=== PATIENT | female | born 1950 | race Caucasian/White ===

== ENCOUNTER 2023-12-08 11:32 | Inpatient (IN) | payer MEDICARE, OTHER ==
--- NOTE | 2023-12-08 12:13 | ED ---
Abdominal Pain HPI - General Chief Complaint: Abdominal Pain Stated Complaint: Abdominal Pain Time Seen by Provider: 12/08/23 12:02 Source: patient, family, RN notes reviewed Mode of arrival: ambulatory Limitations: no limitations - History of Present Illness Initial Comments: This is a 73-year-old female who presents to the emergency department for abdo reinaldo pain. Reports lower abdominal cramping for the last 4 days. Pain is not worse on any particular side. She does have radiation into the back as well. Reports some constipation. She has had similar pains on and off over the last year, however they have not lasted this long or been as severe as they have been over the last 4 days. She has not had any workup or imaging done regarding the pain. She followed up with her primary care provider and was advised to take laxatives as she has had some constipation. Additionally, over the last week she has had green vaginal discharge with a foul odor. Denies any vaginal itching or burning. MD Complaint: abdominal pain - Related Data Home Medications Medication Instructions Recorded Confirmed Amiodarone [Cordarone] 200 mg PO DAILY@0912/08/23 12/08/23 Apixaban [Eliquis] 5 mg PO BID@09,209912/08/23 12/08/23 Aspirin EC [Ecotrin Low Dose] 81 mg PO DAILY@89912/08/23 12/08/23 Atorvastatin [Lipitor] 80 mg PO HS@209912/08/23 12/08/23 Docusate 50mg 50 mg PO BID@0900,209912/08/23 12/08/23 Ezetimibe [Zetia] 10 mg PO DAILY@0900 12/08/23 12/08/23 Gabapentin [Neurontin] 300 mg PO BID PRN 12/08/23 12/08/23 Lacosamide 100 mg PO BID@1000,2200 12/08/23 12/08/23 Magnesium Oxide [Mag-Ox] 400 mg PO BID@0900,209912/08/23 12/08/23 Metoprolol Succinate (ER) [Toprol 50 mg PO BID@0900,209912/08/23 12/08/23 Xl] Mirabegron [Myrbetriq] 25 mg PO DAILY@0900 12/08/23 12/08/23 Omeprazole 20 mg PO BID@0900,1600 12/08/23 12/08/23 Phenytoin Sodium Extended 300 mg PO HS@2100 12/08/23 12/08/23 [Dilantin] Sennosides [Senokot] 8.6 mg PO DAILY@0900 12/08/23 12/08/23 Vilazodone HCl 20 mg PO DAILY@0900 12/08/23 12/08/23 Allergies Allergy/AdvReac Type Severity Reaction Status Date / Time No Known Allergies Allergy Verified 12/08/23 17:48 Review of Systems ROS Statement: Those systems with pertinent positive or pertinent negative responses have been documented in the HPI. ROS Other: All systems not noted in ROS Statement are negative. Past Medical History Past Medical History: CVA/TIA, Hyperlipidemia, Hypertension, Myocardial Infarction ([place]) History of Any Multi-Drug Resistant Organisms: None Reported Past Surgical History: Section, Coronary Bypass/CABG Smoking Status: Former smoker General Exam Limitations: no limitations General appearance: alert, in no apparent distress Head exam: Present: atraumatic, normocephalic, normal inspection Respiratory exam: Present: normal lung sounds bilaterally. Absent: respiratory distress, wheezes, rales, rhonchi, stridor Cardiovascular Exam: Present: regular rate, normal rhythm, normal heart sounds. Absent: systolic murmur, diastolic murmur, rubs, gallop, clicks GI/Abdominal exam: Present: soft, tenderness (Lower abdomen), normal bowel sounds. Absent: distended Neurological exam: Present: alert, oriented X3, CN II-XII intact Psychiatric exam: Present: normal affect, normal mood Skin exam: Present: warm, dry, intact, normal color. Absent: rash Course Vital Signs 12/08/23 12/08/23 12/08/23 11:56 12:00 16:00 Temperature 98 F Pulse Rate 120 H 76 86 Respiratory 20 16 16 Rate Blood Pressure 116/89 143/103 O2 Sat by Pulse 98 99 96 Oximetry 12/08/23 12/08/23 12/08/23 17:00 18:00 19:00 Temperature Pulse Rate 71 76 81 Respiratory 16 18 16 Rate Blood Pressure 141/72 152/78 142/103 O2 Sat by Pulse 96 96 95 Oximetry 12/08/23 12/09/23 12/09/23 20:26 00:20 03:32 Temperature Pulse Rate 114 H 115 H 111 H Respiratory 20 16 16 Rate Blood Pressure 142/103 126/78 119/84 O2 Sat by Pulse 96 95 95 Oximetry 12/09/23 12/09/23 04:55 05:54 Temperature Pulse Rate 101 H 99 Respiratory 16 16 Rate Blood Pressure 98/58 114/74 O2 Sat by Pulse 96 95 Oximetry Medical Decision Making - Medical Decision Making This is a 73 year old female who presents to the emergency department for abdominal pain. Was pt. sent in by a medical professional or institution? @ -No Did you speak to anyone other than the patient for history? @ -No Did you review nursing and triage notes? @ -Yes, and I agree, it is accurate with regards to the patient's symptoms. Were old charts reviewed? @ -No Differential Diagnosis? @ -Differential Abdominal Pain Women: Appendicitis, Cholecystitis, diverticulosis, ischemic bowel, pancreatitis, hepatitis, UTI, gastroenteritis, AAA, incarcerated hernia, bowel obstruction, constipation, inflammatory bowel, hepatitis, peptic ulcer disease, splenic infarction, perforated viscus, vulvitis, ovarian torsion, PID, kidney stone, placenta abruption, this is not meant to be an all-inclusive list EKG interpreted by me (3pts min.)? @ -Ordered - pending at admission. X-rays interpreted by me (1pt min.)? @ -Not obtained CT interpreted by me (1pt min.)? @ -CT scan of the abdomen and pelvis obtained. My interpretation identifies a large mass in the pelvis. U/S interpreted by me (1pt. min.)? @ -Transvaginal ultrasound obtained. My interpretation identifies what appears to be a mass near the uterus. What testing was considered but not performed? (CT, X-rays, U/S, labs)? Why? @ -None What meds were considered but not given? Why? @ -None Did you discuss the management of the patient with other professionals? @ -Yes, Karissa Lai with [facility] who accepts the patient for admission Did you reconcile home meds? @ -Yes Was smoking cessation discussed for >3mins.? @ -No Was critical care preformed (if so, how long)? @ -No Were there social determinants of health that impacted care today? How? (Homelessness, low income, unemployed, alcoholism, drug addiction, transportation, low edu. Level, literacy, decrease access to med. care, [facility], rehab)? @ -No Was there de-escalation of care discussed even if they declined? (Discuss DNR or withdrawal of care, Hospice)? @ -No What co-morbidities impacted this encounter? (DM, HTN, Smoking, COPD, CAD, Cancer, CVA, Hep., AIDS, mental health diagnosis, sleep apnea, morbid obesity)? @ -HLD, HTN Was patient admitted / discharged? @ -Admitted. Lab work demonstrates leukocytosis with a white blood cell count of 23.2. Liver enzymes also mildly elevated, however there was some hemolysis. CT scan of the abdomen and pelvis demonstrates a large complex cystic area within the mid pelvis that could be multiple suspicious cysts within an ovarian neoplasm. There is also diverticulosis and sigmoid wall thickening. They advised consideration for mild diverticulitis. Given these findings, pelvic ultrasound was obtained. This demonstrates a large heterogeneous mass in the expected location of the uterus highly concerning for malignancy unless proven otherwise. Patient did continue to be in a large amount of pain. Patient admitted to medicine for the intractable pain related to pelvic mass as well as diverticulitis. Consult placed for [employer] and hematology/oncology regarding the pelvic mass. Advised the patient that it is not clear how much workup can necessarily be done on an inpatient basis and she will need outpatient follow up, however we will try to manage her pain, which is her most bothersome issue. Blood cultures were obtained and she was started on ceftriaxone and Flagyl regarding potential diverticulitis. Undiagnosed new problem with uncertain prognosis? @ -None Drug Therapy requiring intensive monitoring for toxicity (Heparin, Nitro, Insulin, Cardizem)? @ -None Were any procedures done? @ -None Diagnosis/symptom? @ -Pelvic mass, intractable abdominal pain, diverticulitis Acute, or Chronic, or Acute on Chronic? @ -Acute Uncomplicated (without systemic symptoms) or Complicated (systemic symptoms)? @ -Complicated Side effects of treatment? @ -None Exacerbation, Progression, or Severe Exacerbation] @ -Not applicable Poses a threat to life or bodily function? @ -Yes This case was discussed in detail with the attending ED physician, Dr. Adan. Presentation, findings, and treatment plan discussed in detail as well. - Lab Data Result diagrams: 12/08/23 13:03 12/08/23 13:03 Lab Results 12/08/23 12/08/23 12/08/23 Range/Units 13:03 13:03 13:03 WBC 23.2 H (3.8-10.6) k/uL RBC 4.80 (3.80-5.40) m/uL Hgb 14.1 (11.4-16.0) gm/dL Hct 44.0 (34.0-46.0) % MCV 91.6 (80.0-100.0) fL MCH 29.4 (25.0-35.0) pg MCHC 32.1 (31.0-37.0) g/dL RDW 13.3 (11.5-15.5) % Plt Count 605 H (150-450) k/uL MPV 8.3 Neutrophils % 81 % Lymphocytes % 12 % Monocytes % 5 % Eosinophils % 0 % Basophils % 1 % Neutrophils # 18.9 H (1.3-7.7) k/uL Lymphocytes # 2.7 (1.0-4.8) k/uL Monocytes # 1.1 H (0-1.0) k/uL Eosinophils # 0.1 (0-0.7) k/uL Basophils # 0.1 (0-0.2) k/uL Sodium 138 (137-145) mmol/L Potassium 3.5 (3.5-5.1) mmol/L Chloride 104 (98-107) mmol/L Carbon Dioxide 20 L (22-30) mmol/L Anion Gap 14 mmol/L BUN 8 (7-17) mg/dL Creatinine 0.41 L (0.52-1.04) mg/dL Est GFR (CKD-EPI)AfAm >90 (>60 ml/min/1.73 sqM) Est GFR (CKD-EPI)NonAf >90 (>60 ml/min/1.73 sqM) Glucose 123 H (74-99) mg/dL Plasma Lactic Acid Octavio 1.6 (0.7-2.0) mmol/L Calcium 9.5 (8.4-10.2) mg/dL Total Bilirubin 0.9 (0.2-1.3) mg/dL AST 67 H (14-36) U/L ALT 48 H (4-34) U/L Alkaline Phosphatase 308 H (38-126) U/L Total Protein 8.8 H (6.3-8.2) g/dL Albumin 4.2 (3.5-5.0) g/dL Amylase 52 (30-110) U/L Lipase 38 (23-300) U/L Carcinoembryonic Ag (0.0-4.9) ng/mL CA 125 Antigen (0.0-30.1) U/mL Urine Color Urine Appearance (Clear) Urine pH (5.0-8.0) Ur Specific [place] (1.001-1.035) Urine Protein (Negative) Urine Glucose (UA) (Negative) Urine Ketones (Negative) Urine Blood (Negative) Urine Nitrite (Negative) Urine Bilirubin (Negative) Urine Urobilinogen (<2.0) mg/dL Ur Leukocyte Esterase (Negative) Urine RBC (0-5) /hpf Urine WBC (0-5) /hpf Ur Squamous Epith Cells (0-4) /hpf Urine Bacteria (None) /hpf 12/08/23 12/08/23 12/08/23 Range/Units 13:03 13:03 14:55 WBC (3.8-10.6) k/uL RBC (3.80-5.40) m/uL Hgb (11.4-16.0) gm/dL Hct (34.0-46.0) % MCV (80.0-100.0) fL MCH (25.0-35.0) pg MCHC (31.0-37.0) g/dL RDW (11.5-15.5) % Plt Count (150-450) k/uL MPV Neutrophils % % Lymphocytes % % Monocytes % % Eosinophils % % Basophils % % Neutrophils # (1.3-7.7) k/uL Lymphocytes # (1.0-4.8) k/uL Monocytes # (0-1.0) k/uL Eosinophils # (0-0.7) k/uL Basophils # (0-0.2) k/uL Sodium (137-145) mmol/L Potassium (3.5-5.1) mmol/L Chloride (98-107) mmol/L Carbon Dioxide (22-30) mmol/L Anion Gap mmol/L BUN (7-17) mg/dL Creatinine (0.52-1.04) mg/dL Est GFR (CKD-EPI)AfAm (>60 ml/min/1.73 sqM) Est GFR (CKD-EPI)NonAf (>60 ml/min/1.73 sqM) Glucose (74-99) mg/dL Plasma Lactic Acid Octavio (0.7-2.0) mmol/L Calcium (8.4-10.2) mg/dL Total Bilirubin (0.2-1.3) mg/dL AST (14-36) U/L ALT (4-34) U/L Alkaline Phosphatase (38-126) U/L Total Protein (6.3-8.2) g/dL Albumin (3.5-5.0) g/dL Amylase (30-110) U/L Lipase (23-300) U/L Carcinoembryonic Ag 4.4 (0.0-4.9) ng/mL CA 125 Antigen 37.4 H (0.0-30.1) U/mL Urine Color Yellow Urine Appearance Cloudy H (Clear) Urine pH 7.5 (5.0-8.0) Ur Specific [place] >1.050 H (1.001-1.035) Urine Protein 1+ H (Negative) Urine Glucose (UA) Negative (Negative) Urine Ketones Trace H (Negative) Urine Blood Trace H (Negative) Urine Nitrite Negative (Negative) Urine Bilirubin Negative (Negative) Urine Urobilinogen <2.0 (<2.0) mg/dL Ur Leukocyte Esterase Moderate H (Negative) Urine RBC 12 H (0-5) /hpf Urine WBC 34 H (0-5) /hpf Ur Squamous Epith Cells 36 H (0-4) /hpf Urine Bacteria Rare H (None) /hpf - Radiology Data Radiology results: report reviewed, image reviewed Disposition Clinical Impression: Diverticulitis, Intractable abdominal pain, Pelvic mass Disposition: ADMITTED IP TO THIS [facility] Time of Disposition: 17:34
[2023-12-08 13:34] LABS: Basophils # (A) 0.1 k/uL (0-0.2); Basophils % (A) 1 %; Eosinophils # (A) 0.1 k/uL (0-0.7); Eosinophils % (A) 0 %; HGB 14.1 gm/dL (11.4-16.0); Lymphocytes # (A) 2.7 k/uL (1.0-4.8); Lymphocytes % (A) 12 %; MCH 29.4 pg (25.0-35.0); MCHC 32.1 g/dL (31.0-37.0); MCV 91.6 fL (80.0-100.0); Mean Platelet Volume 8.3; Monocytes # (A) 1.1 k/uL (0-1.0); Monocytes % (A) 5 %; Neutrophils # (A) 18.9 k/uL (1.3-7.7); Neutrophils % (A) 81 %; Platelet Count 605 k/uL (150-450); RDW 13.3 % (11.5-15.5); WBC 23.2 k/uL (3.8-10.6)
[2023-12-08 13:49] LABS: African American GFR (CKD) >90 (>60 ml/min/1.73 sqM); Albumin 4.2 g/dL (3.5-5.0); Amylase 52 U/L (30-110); Anion Gap 14 mmol/L; Blood Urea Nitrogen 8 mg/dL (7-17); Calcium 9.5 mg/dL (8.4-10.2); Carbon Dioxide 20 mmol/L (22-30); Chloride 104 mmol/L (98-107); Glucose 123 mg/dL (74-99); Lipase 38 U/L (23-300); Non-African American GFR(CKD) >90 (>60 ml/min/1.73 sqM); Sodium 138 mmol/L (137-145); Total Bilirubin 0.9 mg/dL (0.2-1.3); Total Protein 8.8 g/dL (6.3-8.2)
[2023-12-08 13:54] LABS: Alkaline Phosphatase 308 U/L (38-126); Potassium 3.5 mmol/L (3.5-5.1)
[2023-12-08 13:55] LABS: ALT 48 U/L (4-34); AST 67 U/L (14-36)
[2023-12-08] MEDS: KETOROLAC 15 MG/ML 1 ML VIAL IVP STA (13:59)
[2023-12-08] MEDS: MORPHINE SULFATE 2 MG/ML SYRINGE IVP STA (14:00)
[2023-12-08] MEDS: SODIUM CHLORIDE 0.9% 1,000 ML IV STA (14:01)
--- NOTE | 2023-12-08 15:14 | CT ---
EXAMINATION TYPE: CT abdomen pelvis w con DATE OF EXAM: 12/08/2023 COMPARISON: None INDICATION: Lower abdominal pain DLP: 612.8 mGycm, Automated exposure control for dose reduction was used. CONTRAST: 100 mL of Isovue 300. Study performed without Oral Contrast TECHNIQUE: Axial images were obtained from above the diaphragm to the pubic rami in the axial plane a t 5 mm thick sections. Reconstructed images are reviewed on the computer in the coronal plane. FINDINGS: Limited CT sections are obtained the lung bases. Lung bases are clear.. CT ABDOMEN: Some wall thickening to the stomach may be present. Follow-up is recommended. Liver: Mild fatty infiltration of liver. No discrete masses are evident. Spleen: Normal Pancreas: Normal Adrenal glands: The adrenal glands are normal. Gallbladder: Normal Kidneys: No masses are evident. No hydronephrosis is present. No cysts are present. Delayed images were obtained through the kidneys, which remain unremarkable. Aorta: Vascular calcification is within the aorta. Inferior vena cava: Normal. CT PELVIS: Diverticular changes are within the sigmoid colon. There may be some sigmoid wall thickening. Mild di verticulosis should be considered. This study is without oral contrast limiting bowel evaluation. Appendix: Normal as visualized. Urinary bladder: Normal. Genitourinary structures: There is a large complex cystic mass in the mid pelvis in the expected cindy on of the uterus. This may be a large cystic ovary with multiple septations. Hypodense masses within the uterus are considered less likely. This area measures at least 12.3 x 8.3 x 7.5 cm in size. Corre late with the patient's surgical history. Additional workup for ovarian cancer is recommended. No ome ntal caking is evident. No significant fluid is present. Osseous structures: No suspicious lytic or sclerotic lesions evident. Advanced degenerative changes a re at the left hip joint space IMPRESSION: 1. Large complex cystic area within the mid pelvis could be multiple suspicious cysts within an ovar karma neoplasm. Additional workup is recommended. 2. Diverticulosis. Some mild diverticulitis without adjacent inflammatory changes could be considered . 3. Wall thickening through the stomach is not excluded. Follow-up is recommended. 4. Mild fatty infiltration of the liver.
[2023-12-08 15:15] LABS: Appearance,Urine Cloudy (Clear); Bacteria,Urine Rare /hpf; Bilirubin,Urine Negative (Negative); Blood,Urine Trace (Negative); Color,Urine Yellow; Glucose,Urine (UA) Negative (Negative); Ketones,Urine Trace (Negative); Leukocyte Esterase,Urine Moderate (Negative); Nitrite,Urine Negative (Negative); PH, Urine 7.5 (5.0-8.0); Protein,Urine 1+ (Negative); RBC,Urine 12 /hpf (0-5); Squamous Epithelial Cell,Urine 36 /hpf (0-4); Urobilinogen,Urine <2.0 mg/dL (<2.0); WBC,Urine 34 /hpf (0-5)
[2023-12-08 15:18] LABS: Specific Gravity,Urine >1.050 (1.001-1.035)
[2023-12-08] MEDS: MORPHINE SULFATE 4 MG/ML SYRINGE IVP STA (15:50)
--- NOTE | 2023-12-08 17:13 | US ---
EXAMINATION TYPE: US pelvic complete DATE OF EXAM: 12/08/2023 COMPARISON: Same day CT CLINICAL INDICATION: Female, 73 years old with history of Pelvic pain, mass on CT; pelvic pain x 1 we ek, difficulty urination x 1 day TECHNIQUE: Transvaginal (TV) and Transabdominal (TA) . Transabdominal sonographic images of the pel vis were acquired. Transvaginal sonographic images were medically necessary to better assess the fol lowing anatomy: Ovaries Date of LMP: 1996 EXAM MEASUREMENTS: A normal uterus is not demonstrated. In its expected location there is a large heterogeneous masslike conglomerate with solid and cystic components which measures in total 9.5 x 4.9 x 9 cm. One of the l arger heterogeneous areas measures 4.1 x 3.8 x 3.3 cm, at the left fundal region. Normal endometrial stripe is not visualized. Normal ovaries are not identified. Bilateral adnexa are obscured by overlying bowel gas. Posterior cu l-de-sac appears within normal limits. IMPRESSION: 1. Neither a normal uterus or bilateral ovaries are identified. 2. Large heterogeneous mass in the expected location of the uterus, highly concerning for malignancy unless proven otherwise. Origin could be uterine or ovarian.
[2023-12-08] MEDS ORDERED: NALOXONE 0.4 MG/ML 1 ML VIAL IV PRN (17:34)
[2023-12-08] MEDS ORDERED: ACETAMINOPHEN TAB 325 MG TAB PO PRN (17:34)
[2023-12-08] MEDS: cefTRIAXone IN SWFI 1,000 MG/10 ML SYRINGE IVP ONE (19:20)
[2023-12-08] MEDS: ONDANSETRON 4 MG/2 ML VIAL IVP PRN (19:20)
[2023-12-08] MEDS: HYDROmorphone 1 MG/ML 1 ML SYRINGE IVP STA (19:21)
[2023-12-08] MEDS: metroNIDAZOLE-NS PMX 500 MG in SALINE 1 100ML.BAG IVPB SCH (20:23)
[2023-12-08] MEDS: PHENYTOIN SODIUM EXTENDED 100 MG CAP PO SCH (20:47)
[2023-12-08] MEDS: APIXABAN 5 MG TAB PO SCH (20:48)
[2023-12-08] MEDS: LACOSAMIDE 50 MG TABLET PO SCH (20:49)
[2023-12-08] MEDS: MAGNESIUM OXIDE 400 MG TAB PO SCH (20:52)
[2023-12-08] MEDS: METOPROLOL SUCCINATE (ER) 50 MG TAB.ER.24H PO SCH (20:52)
[2023-12-08] MEDS: ATORVASTATIN 80 MG TAB PO SCH (20:52)
[2023-12-08] MEDS: DOCUSATE ORAL SOLN 100 MG/10 ML CUP PO SCH (20:53)
[2023-12-09] MEDS: HYDROcodone/APAP 5-325MG 1 EACH TAB PO PRN (02:44)
[2023-12-09] MEDS: KETOROLAC 15 MG/ML 1 ML VIAL IVP PRN (05:23)
[2023-12-09] MEDS: AMIODARONE 200 MG TAB PO SCH (08:46)
[2023-12-09] MEDS: ASPIRIN 81 MG PO SCH (08:46)
[2023-12-09] MEDS: PANTOPRAZOLE 40 MG TABLET PO SCH (08:46)
[2023-12-09] MEDS: SENNOSIDES 8.6 MG TAB PO SCH (08:46)
[2023-12-09] MEDS: EZETIMIBE 10 MG TAB PO SCH (08:47)
[2023-12-09] MEDS ORDERED: PANTOPRAZOLE 40 MG/10 ML VIAL IV SCH (09:00)
[2023-12-09] MEDS: VILAZODONE HCL 20 MG PO SCH (09:50)
[2023-12-09] MEDS: Mirabegron [Myrbetriq] 25 MG Tab.Er.24h PO SCH (09:50)
[2023-12-09] MEDS: SODIUM CHLORIDE 0.9% 1,000 ML IV SCH (09:56)
--- NOTE | 2023-12-09 11:23 | P.OBCN ---
History of Present Illness Consult date: 12/09/23 Reason for consult: pelvic mass Chief complaint: Abdominal pain History of present illness: Ms. Lloyd is a 73 year old who presented to the ER with lower abdominal pain and was found to have a large pelvic mass on imaging. The patient states that the pain has been intermittent over the past year diffusely throughout the pelvis, but it has increased in severity over the past 4 days which lead her to be evaluted in the ER. The pain is concentrated in the lower pelvis but radiates to the lower back and flank areas. The patient states she has barely any appetite. She has gained a small amount of weight over the past 6 months, but nothing she considers abnormal. She has also felt bloated and "swollen" in the lower abdomen. CT Abdomen/Pelvis showed a large complex cystic mass in the mid pelvis in the expected region of the uterus. The mas may be a large cystic ovary with multiple septations. Hypodense masses within the uterus are considered less likely. The area measures at least 12.3 x 8.3 x 7.5 cm. No omental caking is evident. No significant fluid is present. There is also diverticulosis noted and diverticulitis can be considered. Pelvic US shows a mass-like conglomerate with solid and cystic components which measures in total 9.5 x 4.9 x 9 cm in the expected location of the uterus. Normal ovaries are not identified and bilateral adnexa are obscurred by overlying bowel gas. Origin of mass could be uterine or ovarian, highly suspicious for malignancy. Labwork in the ER shows a leukocytosis of 23. CA-125 is mildly elevated at 37. CEA was also drawn, which was normal. ObGyn History: 2 full-term vaginal deliveries, 1 . Menopause was around 1995. The patient denies use of hormone replacement therapy. Past medical history: CVA in 1995, hypertension Medications: see MAR Surgical history: x1, heart surgery Social History: The patient is a former smoker. She also uses marijuana. She denies alcohol or other recreational drug use. The patient lives [place] up [place] in [place] and was in [place] her daughter when the pain occurred. Past Medical History Past Medical History: CVA/TIA, Hyperlipidemia, Hypertension, Myocardial Infarction ([place]) History of Any Multi-Drug Resistant Organisms: None Reported Past Surgical History: Section, Coronary Bypass/CABG Smoking Status: Former smoker Medications and Allergies Home Medications Medication Instructions Recorded Confirmed Type Amiodarone [Cordarone] 200 mg PO DAILY@0900 12/08/23 12/08/23 History Apixaban [Eliquis] 5 mg PO BID@0900,209912/08/23 12/08/23 History Aspirin EC [Ecotrin Low Dose] 81 mg PO DAILY@0900 12/08/23 12/08/23 History Atorvastatin [Lipitor] 80 mg PO HS@209912/08/23 12/08/23 History Docusate 50mg 50 mg PO BID@0900,209912/08/23 12/08/23 History Ezetimibe [Zetia] 10 mg PO DAILY@0900 12/08/23 12/08/23 History Gabapentin [Neurontin] 300 mg PO BID PRN 12/08/23 12/08/23 History Lacosamide 100 mg PO BID@1000,2200 12/08/23 12/08/23 History Magnesium Oxide [Mag-Ox] 400 mg PO BID@0900,209912/08/23 12/08/23 History Metoprolol Succinate (ER) [Toprol 50 mg PO BID@0900,209912/08/23 12/08/23 History Xl] Mirabegron [Myrbetriq] 25 mg PO DAILY@0900 12/08/23 12/08/23 History Omeprazole 20 mg PO BID@0900,1600 12/08/23 12/08/23 History Phenytoin Sodium Extended 300 mg PO HS@209912/08/23 12/08/23 History [Dilantin] Sennosides [Senokot] 8.6 mg PO DAILY@0900 12/08/23 12/08/23 History Vilazodone HCl 20 mg PO DAILY@0900 12/08/23 12/08/23 History Allergies Allergy/AdvReac Type Severity Reaction Status Date / Time No Known Allergies Allergy Verified 12/08/23 17:48 Exam Vital Signs Temp Pulse Pulse Resp BP BP Pulse Ox 12/09/23 08:40 86 16 121/70 12/09/23 07:01 99 16 114/74 94 L 12/09/23 05:54 99 16 114/74 95 12/09/23 04:55 101 H 16 98/58 96 12/09/23 03:32 111 H 16 119/84 95 12/09/23 00:20 115 H 16 126/78 95 12/08/23 20:26 114 H 20 142/103 96 12/08/23 19:00 81 16 142/103 95 12/08/23 18:00 76 18 152/78 96 12/08/23 17:00 71 16 141/72 96 12/08/23 16:00 86 16 143/103 96 12/08/23 12:00 76 16 99 12/08/23 11:56 98 F 120 H 20 116/89 98 Intake and Output 12/08/23 12/09/23 12/09/23 22:59 06:59 14:59 Other: # Voids 1 Focused physical exam is performed. The patient appears to be comfortable at this time. She is conversing normally. Breathing is non-labored. Abdomen is distended and tender to palpation across the lower pelvis. On sterile speculum exam the external genitalia are normal-appearing, the cervix is unremarkable. There are no vaginal discharge, vaginal bleeding, or vaginal lesions noted. On bimanual exam there is a pelvic mass noted that measures approximately 16 weeks in size, it is unclear whether this is uterine or ovarian in origin. The uterus and adnexa are tender to palpation. Extremities are non-tender and non- edematous. Results Result Diagrams: 12/08/23 13:03 12/08/23 13:03 Abnormal Lab Results - Last 24 Hours (Table) 12/08/23 12/08/23 12/08/23 Range/Units 13:03 13:03 13:03 WBC 23.2 H (3.8-10.6) k/uL Plt Count 605 H (150-450) k/uL Neutrophils # 18.9 H (1.3-7.7) k/uL Monocytes # 1.1 H (0-1.0) k/uL Carbon Dioxide 20 L (22-30) mmol/L Creatinine 0.41 L (0.52-1.04) mg/dL Glucose 123 H (74-99) mg/dL AST 67 H (14-36) U/L ALT 48 H (4-34) U/L Alkaline Phosphatase 308 H (38-126) U/L Total Protein 8.8 H (6.3-8.2) g/dL CA 125 Antigen 37.4 H (0.0-30.1) U/mL Urine Appearance (Clear) Ur Specific [place] (1.001-1.035) Urine Protein (Negative) Urine Ketones (Negative) Urine Blood (Negative) Ur Leukocyte Esterase (Negative) Urine RBC (0-5) /hpf Urine WBC (0-5) /hpf Ur Squamous Epith Cells (0-4) /hpf Urine Bacteria (None) /hpf 12/08/23 Range/Units 14:55 WBC (3.8-10.6) k/uL Plt Count (150-450) k/uL Neutrophils # (1.3-7.7) k/uL Monocytes # (0-1.0) k/uL Carbon Dioxide (22-30) mmol/L Creatinine (0.52-1.04) mg/dL Glucose (74-99) mg/dL AST (14-36) U/L ALT (4-34) U/L Alkaline Phosphatase (38-126) U/L Total Protein (6.3-8.2) g/dL CA 125 Antigen (0.0-30.1) U/mL Urine Appearance Cloudy H (Clear) Ur Specific [place] >1.050 H (1.001-1.035) Urine Protein 1+ H (Negative) Urine Ketones Trace H (Negative) Urine Blood Trace H (Negative) Ur Leukocyte Esterase Moderate H (Negative) Urine RBC 12 H (0-5) /hpf Urine WBC 34 H (0-5) /hpf Ur Squamous Epith Cells 36 H (0-4) /hpf Urine Bacteria Rare H (None) /hpf Assessment and Plan Assessment: 73 year old with large pelvic mass of unclear origin Plan: Pelvic mass. CT and pelvic US unable to determine origin of mass, although ovarian is favored. CA-125 is slightly elevated at 37. Will order full OVA-1 panel. Recommend follow up with Gynecology Oncology outpatient for further earnest mace. Thank you for this consult. Please perfect serve with any questions. Time with Patient: Greater than 30 (45 minutes)
--- NOTE | 2023-12-09 13:16 | P.HPIM ---
History of Present Illness H&P Date: 12/09/23 Chief Complaint: Abdominal pain * 73-year-old patient with past medical history significant for history of TIA, hypertension hyperlipidemia history of coronary artery disease s/p CABG, history of atrial fibrillation presents to the emergency department with complaints of abdominal pain ongoing for the last approximately 4 days. Patient had complained of diffuse abdominal pain. Patient had also complained of impaired bowel movement with concern for constipation. Patient states she had similar pains ongoing off and on over the last year or so and had follow- up with primary care physician regarding this. Patient states she has been taking laxatives for constipation. Patient also complained of green vaginal discharge with foul odor. * Workup in ER included CBC showed WBC count of 23.2 hemoglobin of 14.1 platelet count of 605, serum chemistry showed sodium of 138 potassium 3.5 carbon dioxide 20 BUN 8 creatinine 0.41 lactate of 1.6 * AST of 67 ALT of 48 CEA 1 09/10/1937 * Urinalysis obtained showed moderate leukocyte esterase, large amount of WBC rare bacteria was noted * Patient had a CT abdomen and pelvis done which showed large complex cystic area within the mid pelvis with multiple suspicious cyst concern for neoplasm, patient had diverticulosis with element of diverticulitis around the sigmoid colon. Wall thickening of the stomach was noted as well. * To be admitted to medical floor for workup of pelvic mass with suspicion for malignancy REVIEW OF SYSTEMS: Abdominal pain, pelvic mass CONSTITUTIONAL: No fever, no malaise, no fatigue. HEENT: No recent visual problems or hearing problems. Denied any sore throat. CARDIOVASCULAR: No chest pain, orthopnea, PND, no palpitations, no syncope. PULMONARY: No shortness of breath, no cough, no hemoptysis. GASTROINTESTINAL: No diarrhea, no nausea, no vomiting, no abdominal pain. NEUROLOGICAL: No headaches, no weakness, no numbness. HEMATOLOGICAL: Denies any bleeding or petechiae. GENITOURINARY: Denies any burning micturition, frequency, or urgency. MUSCULOSKELETAL/RHEUMATOLOGICAL: Denies any joint pain, swelling, or any muscle pain. ENDOCRINE: Denies any polyuria or polydipsia. PHYSICAL EXAMINATION: GENERAL: The patient is alert and oriented x3, not in any acute distress. Well developed, well nourished. HEENT: Pupils are round and equally reacting to light. EOMI. Normocephalic, atraumatic. No pharyngeal erythema. No thyromegaly. CARDIOVASCULAR: S1 and S2 present. No murmurs, rubs, or gallops. PULMONARY: Chest is clear to auscultation, no wheezing or crackles. ABDOMEN: Soft, nontender, nondistended, normoactive bowel sounds. No palpable organomegaly. MUSCULOSKELETAL: No joint swelling or deformity. EXTREMITIES: No cyanosis, clubbing, or pedal edema. NEUROLOGICAL: Gross neurological examination did not reveal any focal deficits. SKIN: No rashes. Assessment and plan * Uterine mass suspect malignancy * Acute diverticulitis * Transaminitis * History of coronary artery disease and CABG * History of atrial fibrillation * Chronic anticoagulation * Regards to uterine mass patient had a CT abdomen and pelvis done, tumor marke rs obtained, DIRECTOR OF TECHNOLOGY consulted * Regards to acute diverticulitis continue patient on IV antibiotic Rocephin and Flagyl, CT abdomen pelvis reviewed * Regards to transaminitis follow-up on liver profile * Regards to history of coronary artery disease, continue aspirin, Lipitor, metoprolol * Regards to history of atrial fibrillation, Eliquis on hold, metoprolol resumed continue cafeteria monitor * CODE STATUS is full code Past Medical History Past Medical History: CVA/TIA, Hyperlipidemia, Hypertension, Myocardial Infarction ([place]) History of Any Multi-Drug Resistant Organisms: None Reported Past Surgical History: Section, Coronary Bypass/CABG Smoking Status: Former smoker Medications and Allergies Home Medications Medication Instructions Recorded Confirmed Type Amiodarone [Cordarone] 200 mg PO DAILY@89912/08/23 12/08/23 History Apixaban [Eliquis] 5 mg PO BID@899,209912/08/23 12/08/23 History Aspirin EC [Ecotrin Low Dose] 81 mg PO DAILY@89912/08/23 12/08/23 History Atorvastatin [Lipitor] 80 mg PO HS@209912/08/23 12/08/23 History Docusate 50mg 50 mg PO BID@899,209912/08/23 12/08/23 History Ezetimibe [Zetia] 10 mg PO DAILY@89912/08/23 12/08/23 History Gabapentin [Neurontin] 300 mg PO BID PRN 12/08/23 12/08/23 History Lacosamide 100 mg PO BID@1000,2200 12/08/23 12/08/23 History Magnesium Oxide [Mag-Ox] 400 mg PO BID@0900,209912/08/23 12/08/23 History Metoprolol Succinate (ER) [Toprol 50 mg PO BID@0900,209912/08/23 12/08/23 History Xl] Mirabegron [Myrbetriq] 25 mg PO DAILY@0900 12/08/23 12/08/23 History Omeprazole 20 mg PO BID@0900,1600 12/08/23 12/08/23 History Phenytoin Sodium Extended 300 mg PO HS@209912/08/23 12/08/23 History [Dilantin] Sennosides [Senokot] 8.6 mg PO DAILY@0900 12/08/23 12/08/23 History Vilazodone HCl 20 mg PO DAILY@89912/08/23 12/08/23 History Allergies Allergy/AdvReac Type Severity Reaction Status Date / Time No Known Allergies Allergy Verified 12/08/23 17:48 Physical Exam Vitals: Vital Signs Temp Pulse Resp BP Pulse Ox 12/09/23 07:01 99 16 114/74 94 L 12/09/23 05:54 99 16 114/74 95 12/09/23 04:55 101 H 16 98/58 96 12/09/23 03:32 111 H 16 119/84 95 12/09/23 00:20 115 H 16 126/78 95 12/08/23 20:26 114 H 20 142/103 96 12/08/23 19:00 81 16 142/103 95 12/08/23 18:00 76 18 152/78 96 12/08/23 17:00 71 16 141/72 96 12/08/23 16:00 86 16 143/103 96 12/08/23 12:00 76 16 99 12/08/23 11:56 98 F 120 H 20 116/89 98 Results CBC & Chem 7: 12/08/23 13:03 12/08/23 13:03 Labs: Abnormal Lab Results - Last 24 Hours (Table) 12/08/23 12/08/23 12/08/23 Range/Units 13:03 13:03 13:03 WBC 23.2 H (3.8-10.6) k/uL Plt Count 605 H (150-450) k/uL Neutrophils # 18.9 H (1.3-7.7) k/uL Monocytes # 1.1 H (0-1.0) k/uL Carbon Dioxide 20 L (22-30) mmol/L Creatinine 0.41 L (0.52-1.04) mg/dL Glucose 123 H (74-99) mg/dL AST 67 H (14-36) U/L ALT 48 H (4-34) U/L Alkaline Phosphatase 308 H (38-126) U/L Total Protein 8.8 H (6.3-8.2) g/dL CA 125 Antigen 37.4 H (0.0-30.1) U/mL Urine Appearance (Clear) Ur Specific [place] (1.001-1.035) Urine Protein (Negative) Urine Ketones (Negative) Urine Blood (Negative) Ur Leukocyte Esterase (Negative) Urine RBC (0-5) /hpf Urine WBC (0-5) /hpf Ur Squamous Epith Cells (0-4) /hpf Urine Bacteria (None) /hpf 12/08/23 Range/Units 14:55 WBC (3.8-10.6) k/uL Plt Count (150-450) k/uL Neutrophils # (1.3-7.7) k/uL Monocytes # (0-1.0) k/uL Carbon Dioxide (22-30) mmol/L Creatinine (0.52-1.04) mg/dL Glucose (74-99) mg/dL AST (14-36) U/L ALT (4-34) U/L Alkaline Phosphatase (38-126) U/L Total Protein (6.3-8.2) g/dL CA 125 Antigen (0.0-30.1) U/mL Urine Appearance Cloudy H (Clear) Ur Specific [place] >1.050 H (1.001-1.035) Urine Protein 1+ H (Negative) Urine Ketones Trace H (Negative) Urine Blood Trace H (Negative) Ur Leukocyte Esterase Moderate H (Negative) Urine RBC 12 H (0-5) /hpf Urine WBC 34 H (0-5) /hpf Ur Squamous Epith Cells 36 H (0-4) /hpf Urine Bacteria Rare H (None) /hpf
--- NOTE | 2023-12-09 13:45 | P.CONS ---
History of Present Illness - Reason for Consult Consult date: 12/09/23 Pelvic mass Requesting physician: Martin Pizarro - Chief Complaint Abdominal pain - History of Present Illness Ms. Lloyd is a very pleasant 73-year-old female who is here for abdominal pain for the past several days. She has had intermittent abdominal pain for few weeks now. She initially had lower abdominal pain possibly few months ago that resolved. She was a little constipated at the time and was prescribed Dulcolax by her PCP which helped the constipation and bloating that she was having but not the intermittent pain. She had increasing abdominal pain for the past 4 days which prompted her ER visit. Also complaining of vaginal discharge, green with foul odor. Workup in the ER revealed leukocytosis with a WBC of 23, platelet 605, normal hemoglobin at 14, normal creatinine at 0.4. She did have mild transaminitis at 67 and 48 for AST and ALT respectively. Alk phos 308 with a total bilirubin of 0.9. She underwent CT of the abdomen pelvis which revealed a large 12 x 8.3 x 7.5 cm complex cystic area in the mid pelvis, possibly uterine mass. Also with some diverticulosis and possible stomach wall thickening. She underwent pelvic ultrasound which confirmed a 9.5 x 4.9 x 9 cm masslike conglomerate where the uterus should be without visualization of the ovaries due to gas obstructing the adnexa or obvious uterus. One of the heterogenous areas within this mass measures 4.1 x 3.8 x 3.3 cm. She is being admitted for further evaluation of possible [employer] malignancy. Overall she has been doing well. She does have some comorbidities including open heart surgery for aortic aneurysm, valve repair, and CABG x 2 in 2021 (aortic aneurysm was found incidentally on a lung cancer screening CT per patient and her daughter) as well as CVA in 1995. She does have some residual deficits from her prior stroke, mainly difficulty with memory. Otherwise she has been independent and overall healthy. She has a remote history of smoking however does not currently smoke. Past Medical History Past Medical History: CVA/TIA, Hyperlipidemia, Hypertension, Myocardial Infarction ([place]) History of Any Multi-Drug Resistant Organisms: None Reported Past Surgical History: Section, Coronary Bypass/CABG Smoking Status: Former smoker Medications and Allergies Home Medications Medication Instructions Recorded Confirmed Type Amiodarone [Cordarone] 200 mg PO DAILY@0900 12/08/2312/07/24 History Apixaban [Eliquis] 5 mg PO BID@0900,209912/08/23 12/08/23 History Aspirin EC [Ecotrin Low Dose] 81 mg PO DAILY@89912/08/23 12/08/23 History Atorvastatin [Lipitor] 80 mg PO HS@209912/08/23 12/08/23 History Docusate 50mg 50 mg PO BID@0900,209912/08/23 12/08/23 History Ezetimibe [Zetia] 10 mg PO DAILY@89912/08/23 12/08/23 History Gabapentin [Neurontin] 300 mg PO BID PRN 12/08/23 12/08/23 History Lacosamide 100 mg PO BID@1000,219912/08/23 12/08/23 History Magnesium Oxide [Mag-Ox] 400 mg PO BID@0900,209912/08/23 12/08/23 History Metoprolol Succinate (ER) [Toprol 50 mg PO BID@0900,209912/08/23 12/08/23 History Xl] Mirabegron [Myrbetriq] 25 mg PO DAILY@0912/08/23 12/08/23 History Omeprazole 20 mg PO BID@0900,1600 12/08/23 12/08/23 History Phenytoin Sodium Extended 300 mg PO HS@209912/08/23 12/08/23 History [Dilantin] Sennosides [Senokot] 8.6 mg PO DAILY@89912/08/23 12/08/23 History Vilazodone HCl 20 mg PO DAILY@89912/08/23 12/08/23 History Allergies Allergy/AdvReac Type Severity Reaction Status Date / Time No Known Allergies Allergy Verified 12/08/23 17:48 Physical Exam Vitals: Vital Signs Temp Pulse Resp BP Pulse Ox 12/09/23 07:01 99 16 114/74 94 L 12/09/23 05:54 99 16 114/74 95 12/09/23 04:55 101 H 16 98/58 96 12/09/23 03:32 111 H 16 119/84 95 12/09/23 00:20 115 H 16 126/78 95 12/08/23 20:26 114 H 20 142/103 96 12/08/23 19:00 81 16 142/103 95 12/08/23 18:00 76 18 152/78 96 12/08/23 17:00 71 16 141/72 96 12/08/23 16:00 86 16 143/103 96 12/08/23 12:00 76 16 99 12/08/23 11:56 98 F 120 H 20 116/89 98 Patient appears to be in no acute distress. She is alert and oriented x 3. Appropriate affect. She does have some tenderness in the lower abdominal region, suprapubic region. Otherwise abdomen is soft and nondistended. No respiratory distress. Results CBC & Chem 7: 12/08/23 13:03 12/08/23 13:03 Labs: Abnormal Lab Results - Last 24 Hours (Table) 12/08/23 12/08/23 12/08/23 Range/Units 13:03 13:03 13:03 WBC 23.2 H (3.8-10.6) k/uL Plt Count 605 H (150-450) k/uL Neutrophils # 18.9 H (1.3-7.7) k/uL Monocytes # 1.1 H (0-1.0) k/uL Carbon Dioxide 20 L (22-30) mmol/L Creatinine 0.41 L (0.52-1.04) mg/dL Glucose 123 H (74-99) mg/dL AST 67 H (14-36) U/L ALT 48 H (4-34) U/L Alkaline Phosphatase 308 H (38-126) U/L Total Protein 8.8 H (6.3-8.2) g/dL CA 125 Antigen 37.4 H (0.0-30.1) U/mL Urine Appearance (Clear) Ur Specific [place] (1.001-1.035) Urine Protein (Negative) Urine Ketones (Negative) Urine Blood (Negative) Ur Leukocyte Esterase (Negative) Urine RBC (0-5) /hpf Urine WBC (0-5) /hpf Ur Squamous Epith Cells (0-4) /hpf Urine Bacteria (None) /hpf 12/08/23 Range/Units 14:55 WBC (3.8-10.6) k/uL Plt Count (150-450) k/uL Neutrophils # (1.3-7.7) k/uL Monocytes # (0-1.0) k/uL Carbon Dioxide (22-30) mmol/L Creatinine (0.52-1.04) mg/dL Glucose (74-99) mg/dL AST (14-36) U/L ALT (4-34) U/L Alkaline Phosphatase (38-126) U/L Total Protein (6.3-8.2) g/dL CA 125 Antigen (0.0-30.1) U/mL Urine Appearance Cloudy H (Clear) Ur Specific [place] >1.050 H (1.001-1.035) Urine Protein 1+ H (Negative) Urine Ketones Trace H (Negative) Urine Blood Trace H (Negative) Ur Leukocyte Esterase Moderate H (Negative) Urine RBC 12 H (0-5) /hpf Urine WBC 34 H (0-5) /hpf Ur Squamous Epith Cells 36 H (0-4) /hpf Urine Bacteria Rare H (None) /hpf Comments: Transvaginal pelvic ultrasound reviewed CT scan - abdomen: report reviewed, image reviewed CT scan - pelvis: report reviewed, image reviewed Assessment and Plan Assessment: 1. Abdominal pain with new possible uterine mass 2. Leukocytosis and thrombocytosis 3. Mild transaminits Plan: Ms. Lloyd is a very pleasant 73-year-old female who is here for abdominal pain, workup revealed a large 9.5 cm masslike conglomerate in the region of the uterus concerning for malignancy. CA125 37, CEA 4.4. Also with mild leukocytosis and thrombocytosis at 23 and 605 respectively with a normal hemoglobin of 14. -I reviewed her CT images. Discussed her image findings with her -Overall clinical picture highly suspicious for gynecologic malignancy -She would benefit from gynecologic examination including possible endometrial biopsy to establish diagnosis -Would obtain CT chest to rule out lung lesions -Leukocytosis and thrombocytosis likely reactive, monitor for now and will complete basic workup Discussed with patient she is agreeable to plan. All her questions were answered.
[2023-12-09] MEDS: MORPHINE SULFATE 4 MG/ML SYRINGE IV PRN (17:28)
[2023-12-09] MEDS: GABAPENTIN 300 MG CAP PO PRN (21:05)
[2023-12-10 08:26] LABS: HCT 35.5 % (37.2-46.3); HGB 11.7 g/dL (12.0-15.0); MCH 29.6 pg (27.0-32.0); MCV 89.9 FL (80.0-97.0); Mean Platelet Volume 9.4 FL (9.5-12.2); NRBC Per 100 WBC 0 X 10*3/uL (0.00-0.01); Platelet Count 477 X 10*3/uL (140-440); RBC 3.95 X 10*6/uL (4.10-5.20); WBC 21.56 X 10*3/uL (4.50-10.00)
[2023-12-10 09:24] LABS: Basophils # (A) 0.09 X 10*3/uL (0.00-0.10); Basophils % (A) 0.4 %; Eosinophils # (A) 0.12 X 10*3/uL (0.04-0.35); Eosinophils % (A) 0.6 %; Lymphocytes # (A) 3.36 X 10*3/uL (0.90-5.00); Lymphocytes % (A) 15.6 %; Monocytes # (A) 1.94 X 10*3/uL (0.20-1.00); Neutrophils % (A) 73.7 %
[2023-12-10 09:44] LABS: % Iron Saturation 7.24 (12.00-45.00); Blood Urea Nitrogen 7.6 mg/dL (9.0-27.0); Calcium 8.7 mg/dL (8.7-10.3); Carbon Dioxide 21.8 mmol/L (21.6-31.8); Chloride 104 mmol/L (96-109); Glucose 116 mg/dL (70-110); Iron 16 UG/DL (50-170); Potassium 3.4 mmol/L (3.5-5.5); Sodium 137 mmol/L (135-145); Total Iron Binding Capacity 221 UG/DL (228-460)
[2023-12-10 10:04] LABS: INR 1.27 sec (0.93-1.11); Prothrombin Time 13.5 sec (9.9-11.9)
--- NOTE | 2023-12-10 13:57 | P.PN ---
Subjective Progress Note Date: 12/10/23 * 73-year-old patient with past medical history significant for history of TIA, hypertension hyperlipidemia history of coronary artery disease s/p CABG, history of atrial fibrillation presents to the emergency department with complaints of abdominal pain ongoing for the last approximately 4 days. Patient had complained of diffuse abdominal pain. Patient had also complained of impaired bowel movement with concern for constipation. Patient states she had similar pains ongoing off and on over the last year or so and had follow- up with primary care physician regarding this. Patient states she has been taking laxatives for constipation. Patient also complained of green vaginal discharge with foul odor. * Workup in ER included CBC showed WBC count of 23.2 hemoglobin of 14.1 platelet count of 605, serum chemistry showed sodium of 138 potassium 3.5 carbon dioxide 20 BUN 8 creatinine 0.41 lactate of 1.6 * AST of 67 ALT of 48 CEA 1 09/10/1937 * Urinalysis obtained showed moderate leukocyte esterase, large amount of WBC rare bacteria was noted * Patient had a CT abdomen and pelvis done which showed large complex cystic area within the mid pelvis with multiple suspicious cyst concern for neoplasm, patient had diverticulosis with element of diverticulitis around the sigmoid colon. Wall thickening of the stomach was noted as well. * To be admitted to medical floor for workup of pelvic mass with suspicion for malignancy * 12/10/23: Patient seen and evaluated bedside, vitals reviewed, blood work review ed WBC 21.5, hemoglobin 11.7 potassium of 3.4, consult obtained from SH[employer] DRIER. CT chest obtained, continue current antibiotics. Infectious disease consulted as well PHYSICAL EXAMINATION: GENERAL: The patient is alert and oriented x3, Well developed, well nourished. Ill appearance HEENT: Pupils are round and equally reacting to light. EOMI. CARDIOVASCULAR: S1 and S2 present. No murmurs, rubs, or gallops. PULMONARY: Chest is clear to auscultation, no wheezing or crackles. ABDOMEN: Soft, nontender, nondistended, normoactive bowel sounds. No palpable organomegaly. MUSCULOSKELETAL: No joint swelling or deformity. EXTREMITIES: No cyanosis, clubbing, or pedal edema. NEUROLOGICAL: Gross neurological examination did not reveal any focal deficits. SKIN: No rashes. Assessment and plan * Uterine mass suspect malignancy * Acute diverticulitis * gram Positive cocci suspect bacteremia * Transaminitis * History of coronary artery disease and CABG * History of atrial fibrillation * Chronic anticoagulation * Regards to uterine mass patient had a CT abdomen and pelvis done, tumor markers obtained, SH[employer] DRIER consulted, will need outpatient follow-up with Dianna Padilla, hematology oncology consult * Regards to acute diverticulitis continue patient on IV antibiotic Rocephin and Flagyl, CT abdomen pelvis reviewed, infectious disease consulted, blood cultures positive for gram-positive cocci * Regards to transaminitis follow-up on liver profile * Regards to history of coronary artery disease, continue aspirin, Lipitor, metoprolol * Regards to history of atrial fibrillation, Eliquis on hold, in anticipation of any intervention 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 * CODE STATUS is full code Objective - Vital Signs Vital signs: Vital Signs Temp 98.1 F 12/10/23 07:05 Pulse 102 H 12/10/23 07:05 Resp 16 12/10/23 07:05 BP 117/72 12/10/23 07:05 Pulse Ox 97 12/10/23 07:05 FiO2 Intake & Output 12/09/23 12/10/23 12/10/23 18:59 06:59 18:59 Intake Total 830 Balance 830 Weight 59.421 kg Intake: Oral 830 Other: Voiding Method Toilet # Voids 4 3 - Labs CBC & Chem 7: 12/10/23 06:04 12/10/23 06:04 Labs: Abnormal Lab Results - Last 24 Hours (Table) 12/10/23 12/10/23 12/10/23 Range/Units 06:04 06:04 06:04 WBC 21.56 H (4.50-10.00) X 10*3/uL RBC 3.95 L (4.10-5.20) X 10*6/uL Hgb 11.7 L (12.0-15.0) g/dL Hct 35.5 L (37.2-46.3) % Plt Count 477 H (140-440) X 10*3/uL MPV 9.4 L (9.5-12.2) FL Immature Gran # 0.15 H (0.00-0.04) X 10*3/uL Neutrophils # 15.90 H (1.80-7.70) X 10*3/uL Monocytes # 1.94 H (0.20-1.00) X 10*3/uL PT 13.5 H (9.9-11.9) sec INR 1.27 H (0.93-1.11) sec Potassium 3.4 L (3.5-5.5) mmol/L BUN 7.6 L (9.0-27.0) mg/dL Creatinine 0.4 L (0.6-1.5) mg/dL Glucose 116 H (70-110) mg/dL Iron 16 L (50-170) UG/DL TIBC 221 L (228-460) UG/DL % Saturation 7.24 L (12.00-45.00) Transferrin 158.0 L (204.0-354.0) mg/dL Vitamin B12 968.0 H (200.0-944.0) pg/mL Microbiology - Last 24 Hours (Table) 12/08/23 17:45 Blood Culture Gram Stain - Preliminary Blood Blood Culture - Preliminary Molecular ID 12/08/23 17:30 Blood Culture - Preliminary Blood 12/08/23 14:55 Urine Culture - Final Urine,Voided
--- NOTE | 2023-12-10 15:05 | CT ---
EXAMINATION TYPE: CT chest wo/w con CT DLP: mGyc, Automated exposure control for dose reduction was used. DATE OF EXAM: 12/10/2023 2:03 PM COMPARISON: Chest radiograph from same day. Multiple CTs of the chest with most recent on . CLINICAL INDICATION:Female, 73 years old with history of New pelvic mass concerning for malignancy, ? Metastases; [facility], TECHNIQUE: Multiple axial images were obtained through the chest before and after IV contrast. Sagitt al and coronal reformats were created for review. Contrast used: mL of (None if empty) Oral contrast used: (None if empty) FINDINGS: LUNGS/ PLEURA: The lung parenchyma appears unremarkable. AIRWAY: Patent and unremarkable. HEART: Size within normal limits. MEDIASTINUM: No gross evidence of adenopathy. VASCULATURE: The ascending aorta at the arch and just below the beginning of the aortic arch is ecta tic at 4.1 cm. Mural calcifications are seen throughout the aortic arch. 3. Calcified coronary arteries. MUSCULOSKELETAL: No aggressive lesions. Multilevel degenerative disc disease and bridging osteophyt es SOFT TISSUES/LYMPH NODES: Unremarkable. LOWER NECK: No significant findings. UPPER ABDOMEN: No acute findings. 1.7 cm left nodule measures 10-15 HU indicating an adrenal adenoma. IMPRESSION: No evidence of pulmonary parenchymal metastatic disease. 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 Follow up recommendations for incidental pulmonary nodules, if there are any, are per [employer] or [employer]. [email or web address].org/articles/[email or web address]?lang=us
--- NOTE | 2023-12-10 23:00 | P.CONS ---
History of Present Illness - Reason for Consult Consult date: 12/10/23 - History of Present Illness Patient is a 73-year-old female with a past medical history significant for hypertension hyperlipidemia CVA TIA presenting to the hospital 2 days ago for evaluation of abdominal pain and this patient mention having a chronic abdominal pain for more than a year however currently has got recently worse over the last 4 days patient complaining of pain mostly lower abdominal area describing it to be sharp moderate to severe intensity and across the lower abdominal patient complaining of some constipation but no nausea no vomiting and apparently also have some green vaginal discharge with the symptoms the patient has been evaluated on presentation to the hospital the patient was afebrile and no fever have been recorded subsequently patient was tachycardic but not hypotensive or hypoxic and no need for supplemental oxygen patient did have white count 23.2 with a left shift creatinine 0.41 liver enzymes are elevated urine has been positive blood cultures came back positive with gram-positive cocci start that has prompted this infectious disease consultation patient did have abdominal pelvis CT large complex cystic area within the mid pelvis question of ovarian neoplasm mild diverticulitis did not mention any perforation or abscess patient did have pelvic transvaginal ultrasound large heterogeneous mass in the expected location of the uterus highly concerning for malignancy patient is currently being evaluated by DEPENDENCY CASE MANAGER and oncology infectious was consulted because of the positive blood culture Past Medical History Past Medical History: CVA/TIA, Hyperlipidemia, Hypertension Additional Past Medical History / Comment(s): -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, [place] History of Any Multi-Drug Resistant Organisms: None Reported Past Surgical History: Section, Coronary Bypass/CABG Past Anesthesia/Blood Transfusion Reactions: Unable to Obtain Additional Past Anesthesia/Blood Transfusion Reaction / Comm: No previous blood transfusion Past Psychological History: No Psychological Hx Reported Smoking Status: Former smoker Past Alcohol Use History: None Reported Past Drug Use History: None Reported Medications and Allergies Home Medications Medication Instructions Recorded Confirmed Type Amiodarone [Cordarone] 200 mg PO DAILY@89912/08/23 12/08/23 History Apixaban [Eliquis] 5 mg PO BID@899,209912/08/23 12/08/23 History Aspirin EC [Ecotrin Low Dose] 81 mg PO DAILY@89912/08/23 12/08/23 History Atorvastatin [Lipitor] 80 mg PO HS@209912/08/23 12/08/23 History Docusate 50mg 50 mg PO BID@0900,2100 12/08/23 12/08/23 History Ezetimibe [Zetia] 10 mg PO DAILY@0900 12/08/23 12/08/23 History Gabapentin [Neurontin] 300 mg PO BID PRN 12/08/23 12/08/23 History Lacosamide 100 mg PO BID@1000,2200 12/08/23 12/08/23 History Magnesium Oxide [Mag-Ox] 400 mg PO BID@0900,209912/08/23 12/08/23 History Metoprolol Succinate (ER) [Toprol 50 mg PO BID@0900,209912/08/23 12/08/23 History Xl] Mirabegron [Myrbetriq] 25 mg PO DAILY@0900 12/08/23 12/08/23 History Omeprazole 20 mg PO BID@0900,1600 12/08/23 12/08/23 History Phenytoin Sodium Extended 300 mg PO HS@209912/08/23 12/08/23 History [Dilantin] Sennosides [Senokot] 8.6 mg PO DAILY@0900 12/08/23 12/08/23 History Vilazodone HCl 20 mg PO DAILY@0900 12/08/23 12/08/23 History Allergies Allergy/AdvReac Type Severity Reaction Status Date / Time No Known Allergies Allergy Verified 12/08/23 17:48 Physical Exam Vitals: Vital Signs Temp Pulse Resp BP Pulse Ox 12/10/23 11:15 98.3 F 113 H 16 135/74 97 12/10/23 07:05 98.1 F 102 H 16 117/72 97 12/10/23 02:00 98.0 F 104 H 16 128/78 95 12/09/23 20:09 97.4 F L 113 H 16 127/79 93 L 12/09/23 20:00 16 12/09/23 14:00 86 16 106/76 95 Intake and Output 12/09/23 12/10/23 12/10/23 22:59 06:59 14:59 Intake Total 240 590 Balance 240 590 Intake: Oral 240 590 Other: Voiding Method Toilet # Voids 4 3 Weight 59.421 kg Results CBC & Chem 7: 12/12/23 06:28 12/13/23 11:37 Labs: Abnormal Lab Results - Last 24 Hours (Table) 12/10/23 12/10/23 12/10/23 Range/Units 06:04 06:04 06:04 WBC 21.56 H (4.50-10.00) X 10*3/uL RBC 3.95 L (4.10-5.20) X 10*6/uL Hgb 11.7 L (12.0-15.0) g/dL Hct 35.5 L (37.2-46.3) % Plt Count 477 H (140-440) X 10*3/uL MPV 9.4 L (9.5-12.2) FL Immature Gran # 0.15 H (0.00-0.04) X 10*3/uL Neutrophils # 15.90 H (1.80-7.70) X 10*3/uL Monocytes # 1.94 H (0.20-1.00) X 10*3/uL PT 13.5 H (9.9-11.9) sec INR 1.27 H (0.93-1.11) sec Potassium 3.4 L (3.5-5.5) mmol/L BUN 7.6 L (9.0-27.0) mg/dL Creatinine 0.4 L (0.6-1.5) mg/dL Glucose 116 H (70-110) mg/dL Iron 16 L (50-170) UG/DL TIBC 221 L (228-460) UG/DL % Saturation 7.24 L (12.00-45.00) Transferrin 158.0 L (204.0-354.0) mg/dL Vitamin B12 968.0 H (200.0-944.0) pg/mL Microbiology - Last 24 Hours (Table) 12/08/23 17:30 Blood Culture - Preliminary Blood 12/08/23 17:45 Blood Culture Gram Stain - Preliminary Blood Blood Culture - Preliminary Molecular ID 12/08/23 14:55 Urine Culture - Final Urine,Voided Assessment and Plan Plan: 1patient with a streptococcal bacteremia in this patient presented to hospital abdominal pain and noticed to have a large complex mass in the pelvic area with concern for possible ovarian versus uterine malignancy as the patient has been complaining of some vaginal drainage and concern for possible infected mass 2-blood cultures will be document clearance of bacteremia 3-Rocephin 2 g daily Flagyl should provide adequate antibiotic coverage at this point Multiple questions concerns answered We will follow on clinical condition and cultures to further adjust medication if needed Thank you for this consultation we will follow the patient along with you Dictation was produced using [employer] dictation software. please excuse any grammatical, word or spelling errors. Time with Patient: Greater than 30
[2023-12-11 11:43] LABS: BUN/Creat Ratio 9.75 Ratio (12.00-20.00); Blood Urea Nitrogen 3.9 mg/dL (9.0-27.0); Calcium 8.6 mg/dL (8.7-10.3); Carbon Dioxide 20.3 mmol/L (21.6-31.8); Chloride 103 mmol/L (96-109); Glucose 118 mg/dL (70-110); Potassium 3.4 mmol/L (3.5-5.5); Sodium 137 mmol/L (135-145)
[2023-12-11 11:45] LABS: HCT 39.1 % (37.2-46.3); HGB 12.8 g/dL (12.0-15.0); MCH 29.1 pg (27.0-32.0); MCHC 32.7 g/dL (32.0-37.0); MCV 88.9 FL (80.0-97.0); Mean Platelet Volume 9.6 FL (9.5-12.2); NRBC Per 100 WBC 0 X 10*3/uL (0.00-0.01); Platelet Count 517 X 10*3/uL (140-440); RDW 14.1 % (11.5-14.5); WBC 23.43 X 10*3/uL (4.50-10.00)
--- NOTE | 2023-12-11 13:11 | CDI ---
Documentation Clarification Form Date: 12/11/2023 12:49:23 PM From: Ginny Tinoco RN CCDS Phone: [phone] Admit Date: 12/08/2023 07:22:00 PM Patient Name: Shira Lloyd Visit Number: [id number] Discharge Date: ATTENTION: The Clinical Documentation Specialists (CDI) and [facility] Coding Staff appreciate your assistance in clarifying documentation. Please respond to the clarification below the line at the bottom and electronically sign. The CDI & [facility] Coding staff will review the response and follow-up if needed. Please note: Queries are made part of the Legal Health Record. If you have any questions, please contact the author of this message via ITS. Dr. Sha Casas There is documentation of bacteremia ID consult, 12/09. Bacteremia is considered a lab finding. Additional clarification regarding bacteremia is requested. Patient history/risk factors: 73-year-old female presents to the ED with abdominal pain, impaired bowel movement with concern for constipation. Patient also has green vaginal discharge with foul odor. Medical History: CAD, CABG, HTN, HLD, Diverticulitis and Atrial fibrillation. 12/08, HP. Clinical Indicators: WBC, 12/07: 23.2 Left Shift, 12/07: 18.9 Blood Culture, 12/10: Streptococcus Viridans Group ID Consult, 12/09: Patient with a streptococcal bacteremia in this patient presented to hospital abdominal pain and noticed to have a large complex mass in the pelvic area with concern for possible ovarian versus uterine malignancy as the patient has been complaining of some vaginal drainage and concern for possible infected mass. 2 blood cultures will be document clearance of bacteremia. Treatment: 12/07 0.9NS 1L Bolus; 12/08 0.9NS 100cc/hr Antibiotics: 12/08 Ceftriaxone IVPB x 1; 12/09 - Ceftriaxone IVPB Q24H; 12/07 Metronidazole IVPB Q8H Please provide additional clarification regarding the etiology/cause and/or clinical significance of the bacteremia: [ ] Bacteremia is related to sepsis [ ] Bacteremia is due to infectious process, please specify: [ ] Bacteremia is not clinically significant [ ] Other, please specify [ ] Unable to determine (Template Last Revised: October 2020) documented 12/10 medicine note bacteremia poa with concerns of uterine mass infection with continued thick green vaginal discharge. *Sepsis, poa secondary to above. MTDD
--- NOTE | 2023-12-11 21:17 | P.PN ---
Subjective Progress Note Date: 12/11/23 No acute events. Patient reporting persisting lower abdominal/pelvic discomfort. Pain meds are helping improve pain. Patient remains on IV antibiotics for bacteremia, remains afebrile. Objective - Vital Signs Vital signs: Vital Signs Temp 98.2 F 12/11/23 13:35 Pulse 85 12/11/23 13:35 Resp 17 12/11/23 13:35 BP 137/77 12/11/23 13:35 Pulse Ox 96 12/11/23 13:35 FiO2 Intake & Output 12/11/23 12/11/23 12/12/23 06:59 18:59 06:59 Intake Total 590 900 Balance 590 900 Intake: Oral 590 900 Other: Voiding Method Toilet # Voids 4 5 - Constitutional General appearance: Present: average body habitus, no acute distress - EENT Eyes: Present: anicteric sclerae, poor dentition ENT: Present: hearing grossly normal - Neck Carotids: right: bruit present - Respiratory Details: breathing is even and unlabored - Cardiovascular Details: skin warm and dry - Gastrointestinal Gastrointestinal Comment(s): distended firm, lower abd tenderness General gastrointestinal: Present: distended - Integumentary Integumentary: Absent: cyanotic - Neurologic Neurologic: Present: CNII-XII intact - Psychiatric Psychiatric: Present: A&O x's 3 - Labs CBC & Chem 7: 12/11/23 07:00 12/11/23 07:00 Labs: Abnormal Lab Results - Last 24 Hours (Table) 12/11/23 12/11/23 Range/Units 07:00 07:00 WBC 23.43 H (4.50-10.00) X 10*3/uL Plt Count 517 H (140-440) X 10*3/uL Potassium 3.4 L (3.5-5.5) mmol/L Carbon Dioxide 20.3 L (21.6-31.8) mmol/L Anion Gap 13.70 H (4.00-12.00) mmol/L BUN 3.9 L (9.0-27.0) mg/dL Creatinine 0.4 L (0.6-1.5) mg/dL BUN/Creatinine Ratio 9.75 L (12.00-20.00) Ratio Glucose 118 H (70-110) mg/dL Calcium 8.6 L (8.7-10.3) mg/dL Microbiology - Last 24 Hours (Table) 12/08/23 17:30 Blood Culture Gram Stain - Preliminary Blood Blood Culture - Preliminary Streptococcus viridans group 12/08/23 17:45 Blood Culture Gram Stain - Preliminary Blood Blood Culture - Preliminary Streptococcus viridans group Molecular ID Assessment and Plan (1) Intractable abdominal pain Current Visit: Yes Status: Acute Priority: High Code(s): R10.9 - UNSPEC IFIED ABDOMINAL PAIN SNOMED Code(s): 85864541 (2) Pelvic mass Current Visit: Yes Status: Acute Priority: High Code(s): R19.00 - INTRA- ABD AND PELVIC SWELLING, MASS AND LUMP, UNSP SITE SNOMED Code(s): 36975152 Plan: Abd pain, pelvic mass: -I reviewed her CT images and discussed findings with her -Overall clinical picture highly suspicious for gynecologic malignancy -She would benefit from gynecologic examination including possible endometrial biopsy to establish diagnosis -CA 125 mildly elevated at 37.4. CEA normal -FERTILIZING MACHINE OPERATOR consulted, ova-1 panel ordered, recommending crown and bridge technician onc consult -CT chest obtained to rule out lung lesions. CT chest showing no evidence of pulmonary parenchymal metastatic disease. Findings discussed with patient. At this time, patient will need referral to crown and bridge technician onc for further evaluation and biopsy of pelvic mass. Will send referral to Dr. Calvert/Dr. Gaspar and establish care and f/u in clinic and follow up on crown and bridge technician onc recommendations. Pt lives in [place] and is visiting family locally. Unsure if she wants to stay here for care vs finding care closer to home. Will proceed with local referral and pt will further discuss with family on how she wants to proceed Bacteremia -Blood culture positive for S. viridans -Continues on IV abx -Defer to ID team Leukocytosis, thrombocytosis, anemia: -Leukocytosis noted on admission. Differential mostly showing neutrophilia. Likely reactive to bacteremia -Anemia workup ordered. Hgb normal on admission at 14, dropping to 11.7. -Anemia workup ordered -No Vitamin B12 or folate deficiency noted. Iron studies consistent with anemia of inflammation -Continue to monitor CBC for now, no need for transfusions at this time
--- NOTE | 2023-12-12 06:00 | P.PN ---
Subjective Progress Note Date: 12/11/23 * 73-year-old patient with past medical history significant for history of TIA, hypertension hyperlipidemia history of coronary artery disease s/p CABG, history of atrial fibrillation presents to the emergency department with complaints of abdominal pain ongoing for the last approximately 4 days. Patient had complained of diffuse abdominal pain. Patient had also complained of impaired bowel movement with concern for constipation. Patient states she had similar pains ongoing off and on over the last year or so and had follow- up with primary care physician regarding this. Patient states she has been taking laxatives for constipation. Patient also complained of green vaginal discharge with foul odor. * Workup in ER included CBC showed WBC count of 23.2 hemoglobin of 14.1 platelet count of 605, serum chemistry showed sodium of 138 potassium 3.5 carbon dioxide 20 BUN 8 creatinine 0.41 lactate of 1.6 * AST of 67 ALT of 48 CEA 1 09/10/1937 * Urinalysis obtained showed moderate leukocyte esterase, large amount of WBC rare bacteria was noted * Patient had a CT abdomen and pelvis done which showed large complex cystic area within the mid pelvis with multiple suspicious cyst concern for neoplasm, patient had diverticulosis with element of diverticulitis around the sigmoid colon. Wall thickening of the stomach was noted as well. * To be admitted to medical floor for workup of pelvic mass with suspicion for malignancy * 12/10/23: Patient seen and evaluated bedside, vitals reviewed, blood work revi ewed WBC 21.5, hemoglobin 11.7 potassium of 3.4, consult obtained from HUMAN RESOURCE INTERN. CT chest obtained, continue current antibiotics. Infectious disease consulted as well 12/11/2023 Patient is seen in follow-up today with infectious disease along with oncology following. Patient was evaluated by gynecology recommending gynecology oncology evaluation in the outpatient setting. Patient currently staying here with family although lives out in [place]. Patient will follow-up outpatient. Patient continues to have positive blood cultures with infectious disease following maintained on antibiotics and awaiting for clearance of bacteremia. Repeat blood cultures are pending at this time. Patient is currently afebrile no reports of chest pain or shortness of breath. Patient reports continued abdo reinaldo pain and continued amounts of vaginal discharge. Review of systems: Constitutional: No reports of fatigue, fever, or chills Cardiovascular: No reports of chest pain or palpitations Respiratory: No reports of shortness of breath or cough GI: No reports of nausea, vomiting, or diarrhea : No reports of dysuria or retention, reports continued thick green vaginal discharge Neurovascular: No reports of weakness or numbness All medications have been reviewed PHYSICAL EXAMINATION: GENERAL: The patient is alert and oriented x3, Well developed, well nourished. Ill appearance, elderly appearing, thin built HEENT: Pupils are round and equally reacting to light. EOMI. CARDIOVASCULAR: S1 and S2 present. No murmurs, rubs, or gallops. PULMONARY: Chest is clear to auscultation, no wheezing or crackles. ABDOMEN: Soft, nontender, nondistended, normoactive bowel sounds. No palpable organomegaly. MUSCULOSKELETAL: No joint swelling or deformity. EXTREMITIES: No cyanosis, clubbing, or pedal edema. NEUROLOGICAL: Gross neurological examination did not reveal any focal deficits. SKIN: No rashes. Assessment and plan * Uterine mass suspect malignancy * Acute diverticulitis * bacteremia, present on admission with concerns of uterine mass infection with continued thick green vaginal discharge * Sepsis, present on admission secondary to above * Transaminitis * History of coronary artery disease and CABG * History of atrial fibrillation * Chronic anticoagulation * GI prophylaxis * DVT prophylaxis * Full code Plan: * Regards to uterine mass patient had a CT abdomen and pelvis done, tumor markers obtained, HUMAN RESOURCE INTERN consulted, will need outpatient follow-up with Home School Teacher Onc, hematology oncology following recommending the same. Patient lives in [place] currently staying here and visiting with family and unsure if she wants to continue to receive care here or closer to home. * Regards to acute diverticulitis continue patient on IV antibiotic Rocephin and Flagyl, CT abdomen pelvis reviewed, infectious disease following, blood cultures positive for gram-positive cocci, awaiting repeat blood cultures to monitor for clearance of bacteremia * Regards to transaminitis follow-up on liver profile * Regards to history of coronary artery disease, continue aspirin, Lipitor, me toprolol * Regards to history of atrial fibrillation, Eliquis on hold, in anticipation of any intervention metoprolol resumed continue correctional treatment specialist. No plans for intervention at this time and will resume Eliquis * CODE STATUS is full code * Due to multiple complex medical issues, prognosis is guarded. The impression and plan of care has been dictated by Arabella Alexander Nurse Pract itioner as directed. Dr. Tremaine MD I have performed a history and examination and MDM of this patient, discussed the same with the dictator, and agree with the dictator's assessment and plan as written ,documented as a scribe. Based on total visit time, I have performed more than 50% of the visit. Objective - Vital Signs Vital signs: Vital Signs Temp 98.4 F 12/11/23 07:38 Pulse 104 H 12/11/23 07:38 Resp 16 12/11/23 07:38 BP 142/88 12/11/23 07:38 Pulse Ox 94 L 12/11/23 07:38 FiO2 Intake & Output 12/10/23 12/11/23 12/11/23 18:59 06:59 18:59 Intake Total 750 590 120 Balance 750 590 120 Intake: Intake, IV Titration 750 Amount Sodium Chloride 0.9% 1, 500 000 ml @ 100 mls/hr IV . Q10H [facility] Rx#:[id number] cefTRIAXone 2 gm In 50 Sodium Chloride 0.9% 50 ml @ 100 mls/hr IVPB Q24HR [facility]IN Rx#:[id number] metroNIDAZOLE-NS PMX 500 200 mg In Saline 1 100ml.bag @ 100 mls/hr IVPB Q8H [facility]IN Rx#:[id number] Oral 590 120 Other: Voiding Method Toilet # Voids 4 - Labs CBC & Chem 7: 12/11/23 07:00 12/11/23 07:00 Labs: Microbiology - Last 24 Hours (Table) 12/08/23 17:30 Blood Culture Gram Stain - Preliminary Blood Blood Culture - Preliminary Streptococcus viridans group 12/08/23 17:45 Blood Culture Gram Stain - Preliminary Blood Blood Culture - Preliminary Streptococcus viridans group Molecular ID
[2023-12-12 10:56] LABS: HGB 11.9 g/dL (12.0-15.0); MCH 29.8 pg (27.0-32.0); MCHC 33.1 g/dL (32.0-37.0); Mean Platelet Volume 9.1 FL (9.5-12.2); NRBC Per 100 WBC 0 X 10*3/uL (0.00-0.01); Platelet Count 550 X 10*3/uL (140-440); RDW 14.1 % (11.5-14.5); WBC 21.33 X 10*3/uL (4.50-10.00)
[2023-12-12 11:06] LABS: ALT 16 U/L (8-44); AST 28 U/L (13-35); Albumin/Globulin Ratio 1.11 Ratio (1.60-3.17); Alkaline Phosphatase 174 U/L (41-126); BUN/Creat Ratio <8.75 Ratio (12.00-20.00); Blood Urea Nitrogen <3.5 mg/dL (9.0-27.0); Calcium 8.5 mg/dL (8.7-10.3); Carbon Dioxide 19.9 mmol/L (21.6-31.8); Chloride 103 mmol/L (96-109); Globulin 2.7 g/dL (1.6-3.3); Glucose 107 mg/dL (70-110); Magnesium 1.6 mg/dL (1.5-2.4); Potassium 3.2 mmol/L (3.5-5.5); Sodium 139 mmol/L (135-145); Total Bilirubin 0.2 mg/dL (0.3-1.2); Total Protein 5.7 g/dL (6.2-8.2)
[2023-12-12 12:03] LABS: Basophils # (A) 0.11 X 10*3/uL (0.00-0.10); Basophils % (A) 0.5 %; Eosinophils # (A) 0.12 X 10*3/uL (0.04-0.35); Eosinophils % (A) 0.6 %; Lymphocytes # (A) 2.86 X 10*3/uL (0.90-5.00); Lymphocytes % (A) 13.4 %; Monocytes # (A) 1.55 X 10*3/uL (0.20-1.00); Monocytes % (A) 7.3 %; Neutrophils % (A) 77.3 %; RBC Morphology Normal (Normal)
[2023-12-12] MEDS ORDERED: Magnesium Replacement Protocol 1 EACH MISC MISCELLANE PRN (14:54)
[2023-12-12] MEDS ORDERED: Potassium Replacement Protocol 1 EACH MISC MISCELLANE PRN (14:54)
[2023-12-12] MEDS: POTASSIUM CHLORIDE ER 20 MEQ TAB.ER PO SCH (15:22)
[2023-12-12] MEDS: MAGNESIUM SULFATE-D5W PMX 1 GM in DEXTROSE/WATER 1 100ML.BAG IVPB SCH (15:22)
[2023-12-12] MEDS ORDERED: METOCLOPRAMIDE 5 MG/ML 2 ML VIAL IVP PRN (19:15)
[2023-12-12] MEDS: MAGNESIUM OXIDE 400 MG TAB PO SCH (21:12)
--- NOTE | 2023-12-13 06:37 | P.PN ---
Subjective Progress Note Date: 12/12/23 * 73-year-old patient with past medical history significant for history of TIA, hypertension hyperlipidemia history of coronary artery disease s/p CABG, history of atrial fibrillation presents to the emergency department with complaints of abdominal pain ongoing for the last approximately 4 days. Patient had complained of diffuse abdominal pain. Patient had also complained of impaired bowel movement with concern for constipation. Patient states she had similar pains ongoing off and on over the last year or so and had follow- up with primary care physician regarding this. Patient states she has been taking laxatives for constipation. Patient also complained of green vaginal discharge with foul odor. * Workup in ER included CBC showed WBC count of 23.2 hemoglobin of 14.1 platelet count of 605, serum chemistry showed sodium of 138 potassium 3.5 carbon dioxide 20 BUN 8 creatinine 0.41 lactate of 1.6 * AST of 67 ALT of 48 CEA 1 09/10/1937 * Urinalysis obtained showed moderate leukocyte esterase, large amount of WBC rare bacteria was noted * Patient had a CT abdomen and pelvis done which showed large complex cystic area within the mid pelvis with multiple suspicious cyst concern for neoplasm, patient had diverticulosis with element of diverticulitis around the sigmoid colon. Wall thickening of the stomach was noted as well. * To be admitted to medical floor for workup of pelvic mass with suspicion for malignancy * 12/10/23: Patient seen and evaluated bedside, vitals reviewed, blood work revi ewed WBC 21.5, hemoglobin 11.7 potassium of 3.4, consult obtained from FEED INSPECTION SUPERVISOR. CT chest obtained, continue current antibiotics. Infectious disease consulted as well 12/11/2023 Patient is seen in follow-up today with infectious disease along with oncology following. Patient was evaluated by gynecology recommending gynecology oncology evaluation in the outpatient setting. Patient currently staying here with family although lives out in [place]. Patient will follow-up outpatient. Patient continues to have positive blood cultures with infectious disease following maintained on antibiotics and awaiting for clearance of bacteremia. Repeat blood cultures are pending at this time. Patient is currently afebrile no reports of chest pain or shortness of breath. Patient reports continued abdo reinaldo pain and continued amounts of vaginal discharge. 12/12/2023 Patient is seen in follow-up today awaiting repeat blood cultures to determine clearance of bacteremia. Patient is continued on antibiotics with infectious disease following. Patient reports currently no vaginal discharge at this time. Patient reports continued pain and not much of an appetite. Will add Ensure supplements and adjust pain management. Encouraged to increase activity as tolerated. Review of systems: Constitutional: No reports of fatigue, fever, or chills Cardiovascular: No reports of chest pain or palpitations Respiratory: No reports of shortness of breath or cough GI: No reports of nausea, vomiting, or diarrhea : No reports of dysuria or retention, reports no current vaginal discharge Neurovascular: No reports of weakness or numbness All medications have been reviewed PHYSICAL EXAMINATION: GENERAL: The patient is alert and oriented x3, Well developed, well nourished. Ill appearance, elderly appearing, thin built HEENT: Pupils are round and equally reacting to light. EOMI. CARDIOVASCULAR: S1 and S2 present. No murmurs, rubs, or gallops. PULMONARY: Chest is clear to auscultation, no wheezing or crackles. ABDOMEN: Soft, nontender, nondistended, normoactive bowel sounds. No palpable organomegaly. MUSCULOSKELETAL: No joint swelling or deformity. EXTREMITIES: No cyanosis, clubbing, or pedal edema. NEUROLOGICAL: Gross neurological examination did not reveal any focal deficits. SKIN: No rashes. Assessment and plan * Uterine mass suspect malignancy * Acute diverticulitis * bacteremia, present on admission with concerns of uterine mass infection with continued thick green vaginal discharge * Sepsis, present on admission secondary to above * Transaminitis * Moderate protein calorie malnutrition with a BMI of 21.8 * History of coronary artery disease and CABG * History of atrial fibrillation * Chronic anticoagulation * GI prophylaxis * DVT prophylaxis * Full code Plan: * Regards to uterine mass patient had a CT abdomen and pelvis done, tumor markers obtained, FEED INSPECTION SUPERVISOR evaluated, will need outpatient follow-up with Assistant Director Of Financial Aid Onc, hematology oncology following recommending the same. Patient lives in [place] currently staying here and visiting with family and unsure if she wants to continue to receive care here or closer to home. 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 No plans for intervention at this time and will resume Eliquis * Encouraged oral intake. Patient reports not much of an appetite and normally does not eat a lot outpatient. Will add Ensure supplements * Replace electrolytes per protocol and we will follow-up on repeat labs * Encouraged to increase activity as tolerated and getting up out of the bed more often * CODE STATUS is full code * Due to multiple complex medical issues, prognosis is guarded. The impression and plan of care has been dictated by Arabella Alexander, Nurse Practitioner as directed. Dr. Tremaine MD I have performed a history and examination and MDM of this patient, discussed the same with the dictator, and agree with the dictator's assessment and plan as written ,documented as a scribe. Based on total visit time, I have performed more than 50% of the visit. Objective - Vital Signs Vital signs: Vital Signs Temp 98.2 F 12/13/23 01:44 Pulse 101 H 12/13/23 01:44 Resp 17 12/13/23 01:44 BP 133/87 12/13/23 01:44 Pulse Ox 95 12/13/23 01:44 FiO2 Intake & Output 12/12/23 12/12/23 12/13/23 06:59 18:59 06:59 Intake Total 590 1420 Balance 590 1420 Intake: Oral 590 1420 Other: Voiding Method Toilet Toilet # Voids 3 2 1 # Bowel Movements 0 - Labs CBC & Chem 7: 12/12/23 06:28 12/12/23 20:12 Labs: Abnormal Lab Results - Last 24 Hours (Table) 12/12/23 12/12/23 Range/Units 06:28 06:28 WBC 21.33 H (4.50-10.00) X 10*3/uL RBC 4.00 L (4.10-5.20) X 10*6/uL Hgb 11.9 L (12.0-15.0) g/dL Hct 36.0 L (37.2-46.3) % Plt Count 550 H (140-440) X 10*3/uL MPV 9.1 L (9.5-12.2) FL Immature Gran # 0.19 H (0.00-0.04) X 10*3/uL Neutrophils # 16.50 H (1.80-7.70) X 10*3/uL Monocytes # 1.55 H (0.20-1.00) X 10*3/uL Basophils # 0.11 H (0.00-0.10) X 10*3/uL Potassium 3.2 L (3.5-5.5) mmol/L Carbon Dioxide 19.9 L (21.6-31.8) mmol/L Anion Gap 16.10 H (4.00-12.00) mmol/L BUN <3.5 L (9.0-27.0) mg/dL Creatinine 0.4 L (0.6-1.5) mg/dL BUN/Creatinine Ratio <8.75 L (12.00-20.00) Ratio Calcium 8.5 L (8.7-10.3) mg/dL Total Bilirubin 0.2 L (0.3-1.2) mg/dL Alkaline Phosphatase 174 H (41-126) U/L Total Protein 5.7 L (6.2-8.2) g/dL Albumin 3.0 L (3.8-4.9) g/dL Albumin/Globulin Ratio 1.11 L (1.60-3.17) Ratio Microbiology - Last 24 Hours (Table) 12/08/23 17:30 Blood Culture Gram Stain - Final Blood Blood Culture - Final Streptococcus anginosus 12/08/23 17:45 Blood Culture Gram Stain - Final Blood Blood Culture - Final Streptococcus anginosus Molecular ID
--- NOTE | 2023-12-13 13:29 | P.PN ---
Subjective Progress Note Date: 12/13/23 Principal diagnosis: Reason for follow-up is bacteremia Patient is a 73-year-old female with a past medical history significant for hypertension hyperlipidemia CVA TIA presenting to the hospital for evaluation of abdominal pain that has been chronic for her with acute worsening also green vaginal drainage, patient did have CT abdominal pelvis with large complex cystic area within the mid pelvis question of ovarian neoplasm/diverticulitis did not mention any abscess did have a positive blood culture prompting this consultation. On today's evaluation that is 12/13/2023,the patient denies any fever or any chills, patient is breathing comfortably on room air, the patient denies chest pain shortness of breath and no significant cough, patient mention improvement in abdominal pain no nausea vomiting or diarrhea feeling better CBC pending from this morning blood culture finalized with Streptococcus anginosus Objective - Vital Signs Vital signs: Vital Signs Temp 98.4 F 12/13/23 07:56 Pulse 110 H 12/13/23 07:56 Resp 17 12/13/23 07:56 BP 139/89 12/13/23 07:56 Pulse Ox 97 12/13/23 07:56 FiO2 Intake & Output 12/12/23 12/13/23 12/13/23 18:59 06:59 18:59 Intake Total 1420 120 Balance 1420 120 Weight 59.421 kg Intake: Oral 1420 120 Other: Voiding Method Toilet # Voids 2 1 # Bowel Movements 0 - Exam GENERAL DESCRIPTION: An elderly female lying in bed in no distress RESPIRATORY SYSTEM: Unlabored breathing , decreased breath sounds at bases HEART: S1 S2 regular rate and rhythm , ABDOMEN: Soft , no tenderness EXTREMITIES: No edema feet - Labs CBC & Chem 7: 12/12/23 06:28 12/13/23 11:37 Labs: Microbiology - Last 24 Hours (Table) 12/12/23 06:28 Blood Culture - Preliminary Blood 12/08/23 17:30 Blood Culture Gram Stain - Final Blood Blood Culture - Final Streptococcus anginosus 12/08/23 17:45 Blood Culture Gram Stain - Final Blood Blood Culture - Final Streptococcus anginosus Molecular ID Assessment and Plan (1) Bacteremia Current Visit: Yes Status: Acute Code(s): R78.81 - BACTEREMIA SNOMED Code(s): 8112077 (2) Diverticulitis Current Visit: Yes Status: Acute Code(s): K57.92 - DVTRCLI OF INTEST, PART UNSP, W/O PERF OR ABSCESS W/O BLEED SNOMED Code(s): 921590018 (3) Pelvic mass Current Visit: Yes Status: Acute Priority: High Code(s): R19.00 - INTRA- ABD AND PELVIC SWELLING, MASS AND LUMP, UNSP SITE SNOMED Code(s): 29371801 Plan: 1patient with a streptococcal bacteremia in this patient presented to hospital abdominal pain and noticed to have a large complex mass in the pelvic area with concern for possible ovarian versus uterine malignancy as the patient has been complaining of some vaginal drainage and concern for possible infected mass, CT did not report any abscess 2-blood cultures has been document clearance of bacteremia 3-with likely concern for possible endometrial malignancy question of infected mass/tumor abscess not excluded, patient benefit from further evaluation by INTELLIGENCE RESEARCH SPECIALIST possible D&C to make an evidence of any abscess and biopsy patient is covered with Rocephin and Flagyl however if OB is not planning for any workup and the patient is being referred to oncology/surgery close to her home may be able to go home on oral Augmentin x 2 weeks with instruction to follow-up with her physician locally as soon as possible on arrival Dictation was produced using [employer] dictation software. please excuse any grammatical, word or spelling errors. Time with Patient: Greater than 30
[2023-12-13 13:39] VITALS: BMI 21.8
[2023-12-13] MEDS: MAGNESIUM SULFATE-D5W PMX 1 GM in DEXTROSE/WATER 1 100ML.BAG IVPB ONE (13:45)
[2023-12-13] MEDS: POTASSIUM CHLORIDE ER 20 MEQ TAB.ER PO SCH ×2 (13:46→20:01)
[2023-12-13] MEDS: MORPHINE SULFATE 4 MG/ML SYRINGE IV PRN (17:20)
--- NOTE | 2023-12-14 07:18 | P.PN ---
Subjective Progress Note Date: 12/13/23 * 73-year-old patient with past medical history significant for history of TIA, hypertension hyperlipidemia history of coronary artery disease s/p CABG, history of atrial fibrillation presents to the emergency department with complaints of abdominal pain ongoing for the last approximately 4 days. Patient had complained of diffuse abdominal pain. Patient had also complained of impaired bowel movement with concern for constipation. Patient states she had similar pains ongoing off and on over the last year or so and had follow- up with primary care physician regarding this. Patient states she has been taking laxatives for constipation. Patient also complained of green vaginal discharge with foul odor. * Workup in ER included CBC showed WBC count of 23.2 hemoglobin of 14.1 platelet count of 605, serum chemistry showed sodium of 138 potassium 3.5 carbon dioxide 20 BUN 8 creatinine 0.41 lactate of 1.6 * AST of 67 ALT of 48 CEA 1 09/10/1937 * Urinalysis obtained showed moderate leukocyte esterase, large amount of WBC rare bacteria was noted * Patient had a CT abdomen and pelvis done which showed large complex cystic area within the mid pelvis with multiple suspicious cyst concern for neoplasm, patient had diverticulosis with element of diverticulitis around the sigmoid colon. Wall thickening of the stomach was noted as well. * To be admitted to medical floor for workup of pelvic mass with suspicion for malignancy * 12/10/23: Patient seen and evaluated bedside, vitals reviewed, blood work revi ewed WBC 21.5, hemoglobin 11.7 potassium of 3.4, consult obtained from SUPERVISOR COKE HANDLING. CT chest obtained, continue current antibiotics. Infectious disease consulted as well 12/11/2023 Patient is seen in follow-up today with infectious disease along with oncology following. Patient was evaluated by gynecology recommending gynecology oncology evaluation in the outpatient setting. Patient currently staying here with family although lives out in [place]. Patient will follow-up outpatient. Patient continues to have positive blood cultures with infectious disease following maintained on antibiotics and awaiting for clearance of bacteremia. Repeat blood cultures are pending at this time. Patient is currently afebrile no reports of chest pain or shortness of breath. Patient reports continued abdo reinaldo pain and continued amounts of vaginal discharge. 12/12/2023 Patient is seen in follow-up today awaiting repeat blood cultures to determine clearance of bacteremia. Patient is continued on antibiotics with infectious disease following. Patient reports currently no vaginal discharge at this time. Patient reports continued pain and not much of an appetite. Will add Ensure supplements and adjust pain management. Encouraged to increase activity as tolerated. 12/13/2023 Patient is seen and evaluated in follow-up with infectious disease following. Obstetrics/gynecology has evaluated the patient recommending outpatient gynecologic. Oncology also following will make arrangements for resources in the outpatient setting. Patient is unsure if she wants to continue receiving care where she resides in [place] or she will be following up here. Will follow-up closely in the outpatient setting. Repeat cultures thus far negative with infectious disease following and will discuss further regarding discharge planning and antibiotics on discharge. Patient is afebrile with no reports of chest pain or shortness of breath. Patient tolerating a little more diet and is on supplements as well. Encouraged oral intake as patient reports she does not eat very much. Review of systems: Constitutional: No reports of fatigue, fever, or chills Cardiovascular: No reports of chest pain or palpitations Respiratory: No reports of shortness of breath or cough GI: No reports of nausea, vomiting, or diarrhea : No reports of dysuria or retention, reports no current vaginal discharge Neurovascular: No reports of weakness or numbness All medications have been reviewed PHYSICAL EXAMINATION: GENERAL: The patient is alert and oriented x3, Well developed, well nourished. Ill appearance, elderly appearing, thin built HEENT: Pupils are round and equally reacting to light. EOMI. CARDIOVASCULAR: S1 and S2 present. No murmurs, rubs, or gallops. PULMONARY: Chest is clear to auscultation, no wheezing or crackles. ABDOMEN: Soft, nontender, nondistended, normoactive bowel sounds. No palpable o rganomegaly. MUSCULOSKELETAL: No joint swelling or deformity. EXTREMITIES: No cyanosis, clubbing, or pedal edema. NEUROLOGICAL: Gross neurological examination did not reveal any focal deficits. SKIN: No rashes. Assessment and plan * Uterine mass suspect malignancy, will be referred to outpatient gynecologic marketing support specialist for further evaluation * Acute diverticulitis, improved * bacteremia, present on admission with concerns of uterine mass infection with continued thick green vaginal discharge. Most recent repeat blood cultures are negative * Sepsis, present on admission secondary to above * Transaminitis * Moderate protein calorie malnutrition with a BMI of 21.8 * History of coronary artery disease and CABG * History of atrial fibrillation * Chronic anticoagulation * GI prophylaxis * DVT prophylaxis * Full code Plan: * Regards to uterine mass patient had a CT abdomen and pelvis done, tumor markers obtained, SUPERVISOR COKE HANDLING evaluated, will need outpatient follow-up with Assistant Golf Coach Onc, hematology oncology following recommending the same. Patient lives in [place] currently staying here and visiting with family and unsure if she wants to continue to receive care here or closer to home. * Regards to acute diverticulitis continue patient on IV antibiotic Rocephin and Flagyl, CT abdomen pelvis reviewed, infectious disease following, blood cultures positive for gram-positive cocci, repeat blood cultures are negative. 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 No plans for intervention at this time and will resume Eliquis * Encouraged oral intake. Patient reports not much of an appetite and normally does not eat a lot outpatient. Will add Ensure supplements * Replace electrolytes per protocol and we will follow-up on repeat labs * Encouraged to increase activity as tolerated and getting up out of the bed more often * CODE STATUS is full code * Due to multiple complex medical issues, prognosis is guarded. * Possible discharge in the next 24 hours The impression and plan of care has been dictated by Arabella Alexander, Nurse Practitioner as directed. Dr. Tremaine MD I have performed a history and examination and MDM of this patient, discussed the same with the dictator, and agree with the dictator's assessment and plan as written ,documented as a scribe. Based on total visit time, I have performed more than 50% of the visit. Objective - Vital Signs Vital signs: Vital Signs Temp 98.2 F 12/13/23 01:44 Pulse 101 H 12/13/23 01:44 Resp 17 12/13/23 01:44 BP 133/87 12/13/23 01:44 Pulse Ox 95 12/13/23 01:44 FiO2 Intake & Output 12/12/23 12/12/23 12/13/23 06:59 18:59 06:59 Intake Total 590 1420 Balance 590 1420 Intake: Oral 590 1420 Other: Voiding Method Toilet Toilet # Voids 3 2 1 # Bowel Movements 0 - Labs CBC & Chem 7: 12/12/23 06:28 12/13/23 21:33 Labs: Abnormal Lab Results - Last 24 Hours (Table) 12/12/23 12/12/23 Range/Units 06:28 06:28 WBC 21.33 H (4.50-10.00) X 10*3/uL RBC 4.00 L (4.10-5.20) X 10*6/uL Hgb 11.9 L (12.0-15.0) g/dL Hct 36.0 L (37.2-46.3) % Plt Count 550 H (140-440) X 10*3/uL MPV 9.1 L (9.5-12.2) FL Immature Gran # 0.19 H (0.00-0.04) X 10*3/uL Neutrophils # 16.50 H (1.80-7.70) X 10*3/uL Monocytes # 1.55 H (0.20-1.00) X 10*3/uL Basophils # 0.11 H (0.00-0.10) X 10*3/uL Potassium 3.2 L (3.5-5.5) mmol/L Carbon Dioxide 19.9 L (21.6-31.8) mmol/L Anion Gap 16.10 H (4.00-12.00) mmol/L BUN <3.5 L (9.0-27.0) mg/dL Creatinine 0.4 L (0.6-1.5) mg/dL BUN/Creatinine Ratio <8.75 L (12.00-20.00) Ratio Calcium 8.5 L (8.7-10.3) mg/dL Total Bilirubin 0.2 L (0.3-1.2) mg/dL Alkaline Phosphatase 174 H (41-126) U/L Total Protein 5.7 L (6.2-8.2) g/dL Albumin 3.0 L (3.8-4.9) g/dL Albumin/Globulin Ratio 1.11 L (1.60-3.17) Ratio Microbiology - Last 24 Hours (Table) 12/08/23 17:30 Blood Culture Gram Stain - Final Blood Blood Culture - Final Streptococcus anginosus 12/08/23 17:45 Blood Culture Gram Stain - Final Blood Blood Culture - Final Streptococcus anginosus Molecular ID
[2023-12-14] MEDS: POTASSIUM CHLORIDE ER 20 MEQ TAB.ER PO SCH (07:56)
[2023-12-14] MEDS: APIXABAN 5 MG TAB PO SCH (07:56)
[2023-12-14 13:40] VITALS: BP 146/82; PULSE 126; RESP 18; TEMP 98
--- NOTE | 2023-12-17 09:40 | P.DS ---
Providers Date of admission: 12/08/23 19:22 Expected date of discharge: 12/14/23 Attending physician: Martin Pizarro Consults: 12/08/23 17:34 Consult Physician Urgent Consulting Provider: Claudia Suazo Consult Reason/Comments: Pelvic mass Do you want consulting provider notified?: Yes Consult Physician Urgent Consulting Provider: Leandro Contreras Consult Reason/Comments: Pelvic mass, suspected neoplasm Do you want consulting provider notified?: Yes 12/10/23 10:42 Consult Physician Routine Consulting Provider: Henok Bryant Consult Reason/Comments: Strep bacteremia Do you want consulting provider notified?: Yes Primary care physician: Stated None Hospital Course: Final diagnosis Uterine mass suspect malignancy, will be referred to outpatient gynecologic branch specialist for further evaluation Acute diverticulitis, improved bacteremia, present on admission with concerns of uterine mass infection with continued thick green vaginal discharge. Most recent repeat blood cultures are negative Sepsis, present on admission secondary to above Transaminitis Moderate protein calorie malnutrition with a BMI of 21.8 History of coronary artery disease and CABG History of atrial fibrillation Chronic anticoagulation GI prophylaxis DVT prophylaxis Full code Discharge disposition Patient is being discharged in a stable condition with guarded prognosis to home. Patient will follow-up with her primary care provider in [place] in the outpatient setting upon discharge. Patient is to follow-up with oncology as well as gynecology oncology in the outpatient setting as scheduled. Patient to continue a short course of oral antibiotics per ID recommendations. Total time taken is greater than 35 minutes. Hospital course This is a 73-year-old female who was recently admitted with abdominal discomfort with concern for possible uterine mass with noted thick green vaginal discharge. Patient evaluated by gynecology recommending gynecology oncology and antibiotic therapy. Patient with infectious disease following was continued on IV antibiotics as patient did have positive bacteremia. Repeat blood cultures have been negative and patient will transition to oral Augmentin for 2 weeks and close outpatient follow-up recommending in 1 to 2 weeks with gynecology oncology. Patient encouraged oral intake and supplements with meals as patient does not have much of an appetite. Follow-up on repeat labs in the outpatient setting. Patient lives out in [place] and cannot recall the name of her primary care provider but reports she will follow-up with them on discharge. Patient was here visiting with family for a birthday for her grandson. Patient will discuss further with family if she will be receiving care here or closer to home. Resources were provided by oncology for gynecology oncology specialists. Currently no reports of chest pain, shortness of breath, or palpitations. Patient is afebrile. No reports of nausea or vomiting and patient is tolerating diet. Patient will be discharged home today. Guarded prognosis. Physical exam: Gen: This is a 73-year-old female who is awake, alert and oriented x 2-3, thin built, elderly appearing HEENT: Head is atraumatic, normocephalic. Pupils equal, round. Sclerae is anicteric. NECK: Supple. No JVD. No lymphadenopathy. No thyromegaly. LUNGS: Clear to auscultation. No wheezes or rhonchi. No intercostal retractions. HEART: Regular rate and rhythm. No murmur. ABDOMEN: Soft. Bowel sounds are present. No masses. Less tenderness noted on palpation EXTREMITIES: No pedal edema. No calf tenderness. NEUROLOGICAL: Patient is awake, alert and oriented x3. Cranial nerves 2 through 12 are grossly intact. Please refer to medication reconciliation sheet for a list of medications. The impression and plan of care has been dictated by Arabella Alexander, Nurse Practitioner as directed. Dr. Juarez MD I have performed a history and examination and MDM of this patient, discussed the same with the dictator, and agree with the dictator's assessment and plan as written ,documented as a scribe. Based on total visit time, I have performed more than 50% of the visit. Patient Condition at Discharge: Stable Plan - Discharge Summary Discharge Rx Participant: No New Discharge Prescriptions: New Potassium Chloride ER [K-Dur 20] 20 meq PO BID #60 tab Acetaminophen Tab [Tylenol] 650 mg PO Q6HR PRN tab PRN Reason: Mild Pain Or Fever > 100.5 Amoxic-Pot Clav 875-125Mg [Augmentin 875-125] 1 tab PO Q12HR 14 Days #28 tab HYDROcodone/APAP 5-325MG [Branch 5-325] 1 each PO Q4HR PRN #6 tab PRN Reason: Moderate Pain (Scale 4 To 6) Continue Atorvastatin [Lipitor] 80 mg PO HS@2100 Metoprolol Succinate (ER) [Toprol XL] 50 mg PO BID@0900,2100 Ezetimibe [Zetia] 10 mg PO DAILY@0900 Vilazodone HCl 20 mg PO DAILY@0900 Aspirin EC [Ecotrin Low Dose] 81 mg PO DAILY@09 Sennosides [Senokot] 8.6 mg PO DAILY@899 Docusate 50mg 50 mg PO BID@899,2099 Magnesium Oxide [Mag-Ox] 400 mg PO BID@899,2099 Lacosamide 100 mg PO BID@1000,2200 Gabapentin [Neurontin] 300 mg PO BID PRN PRN Reason: Pain Apixaban [Eliquis] 5 mg PO BID@899,2099 Omeprazole 20 mg PO BID@09,1599 Phenytoin Sodium Extended [Dilantin] 300 mg PO HS@2099 Mirabegron [Myrbetriq] 25 mg PO DAILY@899 Amiodarone [Cordarone] 200 mg PO DAILY@899 Discharge Medication List Amiodarone [Cordarone] 200 mg PO DAILY@89912/08/23 [History] Apixaban [Eliquis] 5 mg PO BID@09,209912/08/23 [History] Aspirin EC [Ecotrin Low Dose] 81 mg PO DAILY@89912/08/23 [History] Atorvastatin [Lipitor] 80 mg PO HS@209912/08/23 [History] Docusate 50mg 50 mg PO BID@0900,209912/08/23 [History] Ezetimibe [Zetia] 10 mg PO DAILY@89912/08/23 [History] Gabapentin [Neurontin] 300 mg PO BID PRN 12/08/23 [History] Lacosamide 100 mg PO BID@1000,2200 12/08/23 [History] Magnesium Oxide [Mag-Ox] 400 mg PO BID@0900,209912/08/23 [History] Metoprolol Succinate (ER) [Toprol XL] 50 mg PO BID@0900,209912/08/23 [History] Mirabegron [Myrbetriq] 25 mg PO DAILY@89912/08/23 [History] Omeprazole 20 mg PO BID@0900,1600 12/08/23 [History] Phenytoin Sodium Extended [Dilantin] 300 mg PO HS@209912/08/23 [History] Sennosides [Senokot] 8.6 mg PO DAILY@89912/08/23 [History] Vilazodone HCl 20 mg PO DAILY@00 12/08/23 [History] Acetaminophen Tab [Tylenol] 650 mg PO Q6HR PRN tab 12/14/23 [Rx] Amoxic-Pot Clav 875-125Mg [Augmentin 875-125] 1 tab PO Q12HR 14 Days #28 tab 12/14/23 [Rx] HYDROcodone/APAP 5-325MG [Branch 5-325] 1 each PO Q4HR PRN #6 tab 12/14/23 [Rx] Potassium Chloride ER [K-Dur 20] 20 meq PO BID #60 tab 12/14/23 [Rx] Follow up Appointment(s)/Referral(s): Nestor Acosta MD [REFERRING] - 1 Week Patient Instructions/Handouts: Leukocytosis (DC), Anemia (DC), Thrombocytopenia (DC), Bacteremia (DC) Activity/Diet/Wound Care/Special Instructions: *Activity limited until follow-up *Follow-up with your primary care provider: [facility] [address] [address] *Follow-up with oncology as well as gynecology oncology outpatient for further testing: A list of gynecology oncologists was provided to patient per family request that practice at [facility] *Continue taking medications as prescribed *Strongly recommend Ensure supplements 3 times daily between meals *Continue with potassium and magnesium supplements *Continue taking antibiotics for 2 weeks until finished Discharge Disposition: HOME SELF-CARE
== END 2023-12-14 15:30 | disposition home or self-care (01) | DRG 872 ==
LOC: EC 11:32 → 5NMEDONC 19:22
PROVIDERS: ADMIT Hospitalist; ATTEND Hospitalist
DX: A41.9 Sepsis, unspecified organism (principal); K57.32 Diverticulitis of large intestine without perforation or abscess without bleeding; E44.0 Moderate protein-calorie malnutrition; C55 Malignant neoplasm of uterus, part unspecified; I48.91 Unspecified atrial fibrillation; N73.9 Female pelvic inflammatory disease, unspecified; K75.9 Inflammatory liver disease, unspecified; I25.10 Atherosclerotic heart disease of native coronary artery without angina pectoris; Z68.21 Body mass index [BMI] 21.0-21.9, adult; R19.00 Intra-abdominal and pelvic swelling, mass and lump, unspecified site; R74.01 Elevation of levels of liver transaminase levels; D75.839 Thrombocytosis, unspecified; Z79.01 Long term (current) use of anticoagulants; Z95.1 Presence of aortocoronary bypass graft
CPT/HCPCS: 36415; 71270; 74177; 76830; 76856; 80048; 80053; 81001; 81503; 82150; 82378; 82607; 82728; 82746; 83540; 83550; 83605; 83690; 83735; 84132; 84443; 85025; 85027; 85610; 86304; 87040; 87086; 96361; 96365; 96375; 96376; 99285